=== PATIENT | male | born 1945 | race Hispanic/Latino ===

== ENCOUNTER 2018-09-14 18:06 | Emergency (ER) | payer MEDICARE ==
[2018-09-14 19:29] LABS: BASO # 0.1 K/uL (0.0-0.2); BASO % 0.7 % (0.0-2.0); EOS % 0.4 % (0.0-4.0); HEMOGLOBIN 14.8 g/dL (12.0-18.0); LYMPH # 1.9 K/uL (1.0-4.3); LYMPH % 23.3 % (20.0-40.0); MEAN CELL VOLUME 89.4 fL (80.0-94.0); MEAN CORPUSCULAR HEMOGLOBIN 29.6 pg (27.0-31.0); MEAN CORPUSCULAR HGB CONC 33.1 g/dL (33.0-37.0); MEAN PLATELET VOLUME 8.6 fL (7.2-11.7); MONO # 0.7 K/uL (0.0-0.8); NEUT # 5.5 K/uL (1.8-7.0); NEUT % 67.6 % (50.0-75.0); RBC 5.02 Mil/uL (4.40-5.90); RED CELL DISTRIBUTION WIDTH 14.4 % (11.5-14.5); WHITE BLOOD COUNT 8.1 K/uL (4.8-10.8)
--- NOTE | 2018-09-14 19:29 | C.PDOC ---
History Of Present Illness 72 year old male presents to the ED c/o left great toe pain that has been worsening for the past 2-3 weeks. Patient is a non insulin diabetic. Patient denies fever, chills, nausea, vomit, diarrhea, rash, injury, fall, trauma. Time Seen by Provider: 09/14/18 19:10 Chief Complaint (Nursing): Lower Extremity Problem/Injury History Per: Patient History/Exam Limitations: no limitations Onset/Duration Of Symptoms: Days Current Symptoms Are (Timing): Still Present Recent travel outside of the [place]: No Additional History Per: Patient - Ankle/Foot Description Of Injury: Other Past Medical History Reviewed: Historical Data, Nursing Documentation, Vital Signs Vital Signs: Last Vital Signs Temp 97.6 F 09/14/18 18:11 Pulse 110 H 09/14/18 18:11 Resp 20 09/14/18 18:11 BP 161/86 H 09/14/18 18:11 Pulse Ox 97 09/14/18 18:11 - Medical History PMH: Diabetes Surgical History: No Surg Hx Family History: States: Unknown Family Hx - Social History Hx Alcohol Use: No Hx Substance Use: No - Immunization History Hx Tetanus Toxoid Vaccination: No Hx Influenza Vaccination: Yes Hx Pneumococcal Vaccination: Yes Review Of Systems Constitutional: Negative for: Fever, Chills Cardiovascular: Negative for: Chest Pain Respiratory: Negative for: Cough, Shortness of Breath Gastrointestinal: Negative for: Nausea, Vomiting, Abdominal Pain Musculoskeletal: Positive for: Foot Pain Skin: Negative for: Rash Neurological: Negative for: Weakness, Numbness, Headache, Dizziness Physical Exam - Physical Exam Appears: Non-toxic, No Acute Distress Skin: Warm, Dry Head: Normacephalic Eye(s): bilateral: Normal Inspection Neck: Supple Chest: Symmetrical Cardiovascular: Rhythm Regular Respiratory: No Rales, No Rhonchi, No Wheezing Gastrointestinal/Abdominal: Soft, No Tenderness, No Guarding, No Rebound Back: No CVA Tenderness Extremity: Capillary Refill (left great toe slight decreased) Extremity: Left: Other (left great toe medial aspect 2x3 cm area of necrosis), Right: Normal Color And Temperature, Bilateral: Atraumatic, Normal ROM Pulses: Left Dorsalis Pedis: Normal, Right Dorsalis Pedis: Normal Neurological/Psych: Oriented x3, Normal Speech, Normal Cognition Gait: Steady ED Course And Treatment - Laboratory Results Result Diagrams: 09/14/18 19:00 09/14/18 19:00 O2 Sat by Pulse Oximetry: 97 (ON RA) Pulse Ox Interpretation: Normal - CT Scan/US CT lower extrem Other Rad Studies (CT/US): Read By Radiologist, Radiology Report Reviewed CT/US Interpretation: EXAM: CT Foot, left, without IV contrast. CLINICAL HISTORY: Attn. left great toe/gangrene. TECHNIQUE: Axial computed tomography images of the left foot without intravenous contrast. 0.00 mGy-cm. CONTRAST: Without. COMPARISON: None provided. FINDINGS: BONES: No acute fracture is evident. No aggressive appearing osseous lesion. No periosteal reaction evident. Calcaneal spurs are seen arising from along the insertion site of the Achilles tendon and plantar aspects which measure proximally 9.0 and 7.8 mm in length respectively. JOINTS: The joint spaces appear within normal limits. No dislocation. SOFT TISSUES: No radiopaque foreign body is seen. No soft tissue fluid collection. No subcutaneous gas is identified. VASCULAR: Extensive atherosclerotic vascular plaquing is present. IMPRESSION: 1. No acute abnormality evident on examination of the left foot. 2. Extensive atherosclerotic vascular plaquing. 3. Calcaneal spurs as described above. . Electronically signed on Sep 14, 2018 8:54:06 PM EST by: Donnell Alexis M.D., RUDOLPH Certified By ABR & CBC[facility]. Fellowship Trained MRI and CT Specialist. pt was seen by podiatry. they do not want ot be hospitalized and will see dr hopkins in am on 09/15/18.Understand the risks of not staying Progress Note: Plan: - Labs. - VBG. - CT lower extrem. - UA. - Blood cul ture. 8:55 pm spoke with the podiatry resident. will come and see the pt in the ed Disposition Counseled Patient/Family Regarding: Studies Performed, Diagnosis, Need For Followup - Disposition Referrals: Xiang Vaughn DPM [Doctor Podiatric Medicine] - Disposition: HOME/ ROUTINE Disposition Time: 22:37 Condition: FAIR Additional Instructions: please see your community service officer coordinator tomorrow or return to the ed Prescriptions: Cephalexin [Keflex] 500 mg PO TID #21 capsule Sulfamethoxazole/Trimethoprim [Bactrim DS 800 mg-160 mg] 1 tab PO BID #14 tab Instructions: Cellulitis (Skin Infection), Adult (DC), Diabetic Foot Ulcer (DC), Foot Care for Diabetics Forms: [facility] (Ecuadorean) - Clinical Impression Clinical Impression: Toe ulcer due to DM, Cellulitis - Scribe Statement The provider has reviewed the documentation as recorded by the Scribe Hay Mcwilliams All medical record entries made by the Scribe were at my direction and personally dictated by me. I have reviewed the chart and agree that the record accurately reflects my personal performance of the history, physical exam, medical decision making, and the department course for this patient. I have also personally directed, reviewed, and agree with the discharge instructions and disposition.
[2018-09-14 19:47] LABS: ALB/GLOB RATIO 1.3 (1.0-2.1); ALBUMIN 4.8 g/dL (3.5-5.0); ALT/SGPT 17 U/L (21-72); AST/SGOT 29 U/L (17-59); BLOOD UREA NITROGEN 22 mg/dL (9-20); CALCIUM 9.5 mg/dl (8.6-10.4); GFR NON-AFRICAN AMERICAN > 60
[2018-09-14 19:56] LABS: PROTHROMBIN TIME 10.6 SECONDS (9.7-12.2)
[2018-09-14 20:11] LABS: URINE BACTERIA RARE (<OCC); URINE BILIRUBIN NEGATIVE (NEGATIVE); URINE BLOOD NEGATIVE (NEGATIVE); URINE CLARITY Clear (Clear); URINE COLOR Yellow (YELLOW); URINE GLUCOSE (UA) 3+ mg/dL (Normal); URINE LEUKOCYTE ESTERASE NEG Leu/uL (Negative); URINE PROTEIN 1+ mg/dL (NEGATIVE); URINE UROBILINOGEN NORMAL mg/dL (0.2-1.0)
[2018-09-14 20:45] LABS: VENOUS BLOOD GAS BASE EXCESS -4.5 mmol/L (0.0-2.0); VENOUS BLOOD GAS PCO2 40 mmHg (40-60); VENOUS BLOOD GAS PO2 51 mm/Hg (30-55); VENOUS BLOOD PH 7.33 (7.32-7.43)
[2018-09-14] MEDS ORDERED: (Novolin R) Insulin Human Regular 100 units/ml vial IVP ONE (20:48)
[2018-09-14] MEDS ORDERED: (Novolin R) Insulin Human Regular 100 units/ml vial ONE (20:57)
[2018-09-14 21:56] VITALS: RESP 16
[2018-09-14 22:58] VITALS: BP 145/81; PULSE 91; TEMP 97.8; O2SAT 98
--- NOTE | 2018-09-15 12:34 | CT ---
CT left foot HISTORY: Left toe ulcer. Evaluate gangrene. Comparison: None available. Technique: Multiple contiguous axial images were performed through the left foot without the use of intravenous contrast. Subsequently, sagittal and coronal reformatted images were obtained. This CT exam was performed using one or more of the following dose reduction techniques: Automated exposure control, adjustment of the mA and/or kV according to patient size, and/or use of iterative reconstruction technique. Findings: Soft tissue swelling noted at the level of the 1st digit. This may represent a cellulitis. Punctate foci of air noted at the level of the nail bed on the sagittal views series 602 image 47, nonspecific. Clinical correlation. Mild productive change along the medial cortex of the base of the 1st proximal phalanx, nonspecific. Minimal sclerosis seen at the volar base of the 1st proximal phalanx, nonspecific. No evidence of gross bony destructive change at the 1st digit to suggest an acute osteomyelitis. Further evaluation with MRI may be helpful if clinically indicated if there is concern for acute osteomyelitis. Moderate hallux valgus deformity. Degenerative changes at the 1st metatarsus sesamoid joint space. Prominent vascular calcifications. Plantar and dorsal calcaneal spurring. Narrowing of the tibiotalar joint space. Subchondral cyst formation noted at the base of the 4th metatarsal bone. Impression: Soft tissue swelling noted at the level of the 1st digit. This may represent a cellulitis. Punctate foci of air noted at the level of the nail bed on the sagittal views series 602 image 47, nonspecific. Clinical correlation. Mild productive change along the medial cortex of the base of the 1st proximal phalanx, nonspecific. Minimal sclerosis seen at the volar base of the 1st proximal phalanx, nonspecific. No evidence of gross bony destructive change at the 1st digit to suggest an acute osteomyelitis. Further evaluation with MRI may be helpful if clinically indicated if there is concern for acute osteomyelitis. A preliminary report was generated at 8:54 p.m. on 09/14/[address] Donnell Alexis from [employer]. Please note this case was placed in the PA review folder.
== END 2018-09-14 22:56 | disposition home or self-care (01) ==
LOC: C.ER 18:06
DX: E11.621 Type 2 diabetes mellitus with foot ulcer (principal); L97.529 Non-pressure chronic ulcer of other part of left foot with unspecified severity; Z79.84 Long term (current) use of oral hypoglycemic drugs; L03.032 Cellulitis of left toe

== ENCOUNTER 2018-09-15 13:35 | Inpatient (IN) | payer MEDICARE ==
--- NOTE | 2018-09-15 14:02 | C.PDOC ---
History Of Present Illness 72 yr old male w/ hx of DM2, HTN, HLD p/w L big toe ulceration / gangrene. Per daughter and RN bedside translating pt has had x2 weeks or L big toe foot ulcer with mild pain after initially tripping on a sidewalk. Pt came in last night and was reccomended to stay, but refused and went home with abx, bactrim and a cephalsporin abx which he took this AM. Pt was seen by Dr. Vaughn this morning and sent in here for evaluation, iv abx and admission. Pt denies any pain at this time. He denies any fever, chills or night sweats. He denies any ankle pain, knee or foot pain. No other complaints. Time Seen by Provider: 09/15/18 13:51 Past Medical History - Medical History PMH: Diabetes Family History: States: Unknown Family Hx - Social History Hx Alcohol Use: No Hx Substance Use: No - Immunization History Hx Tetanus Toxoid Vaccination: No Hx Influenza Vaccination: Yes Hx Pneumococcal Vaccination: Yes Review Of Systems Constitutional: Negative for: Fever Eyes: Negative for: Pain, Vision Change ENT: Negative for: Ear Pain, Ear Discharge, Nose Pain, Nose Congestion, Mouth Pain, Mouth Swelling Cardiovascular: Negative for: Chest Pain, Palpitations, Edema Respiratory: Negative for: Cough, Shortness of Breath, SOB with Excertion, Pleuritic Pain Gastrointestinal: Negative for: Nausea, Vomiting, Constipation, Melena Genitourinary: Negative for: Dysuria, Frequency, Hematuria Musculoskeletal: Negative for: Neck Pain, Shoulder Pain, Back Pain Skin: Positive for: Lesions (L big toe ulcer) Neurological: Negative for: Weakness, Numbness Psych: Negative for: Anxiety Physical Exam - Physical Exam Appears: Well, Non-toxic, No Acute Distress Skin: Other (L 1st toe ulcer dorsal surface, mild erythema, gangrenous appearing. No crepitus noted. No streaking. ) Eye(s): bilateral: Normal Inspection, PERRL, EOMI Nose: Normal Oral Mucosa: Moist Tongue: Normal Appearing Throat: Normal, No Erythema, No Exudate Neck: Normal, Supple, Other (no meningeal signs) Cardiovascular: Rhythm Regular Respiratory: Normal Breath Sounds Gastrointestinal/Abdominal: Normal Exam Back: Normal Inspection, No CVA Tenderness, No Vertebral Tenderness Extremity: Normal ROM Pulses: Left Dorsalis Pedis: Normal, Right Dorsalis Pedis: Normal Neurological/Psych: Oriented x3, Normal Speech, Normal Cognition Gait: Steady Extremity: Right: No Drift, Left: No Drift, Upper: No Drift, Lower: No Drift ED Course And Treatment - Laboratory Results Result Diagrams: 09/15/18 14:19 Medical Decision Making Medical Decision Makin yr old male w/ hx of HTN, DM2, HLD p/w L big toe foot ulcer. Likely gangrenous. Seen by Podiatry outpt and sent in for admission. N/V intact in b/l LE. Full ROM. Had imaging yesterday (CT). 1405 appreciate consult w/ Dr. Mendieta (admits for [facility]) to admit to his service. pt in [facility], agreeable to plan Podiatry resident paged. 0518 CBC unremarkable Podiatry resident aware- to see pt Pt in NAD- afebrile no elevated WBC. Admitted to Dr. Mendieta service on med/surg Disposition - Disposition Disposition Time: 14:35 Condition: GOOD Forms: [facility] (Sao Tomean) - Clinical Impression Clinical Impression: Diabetic foot ulcer
[2018-09-15] MEDS ORDERED: Piperacillin/Tazobact 3.375 gm 100 ML IVPB STA (14:06)
[2018-09-15 14:25] LABS: BASO % 0.3 % (0.0-2.0); EOS % 0.6 % (0.0-4.0); HEMOGLOBIN 13.9 g/dL (12.0-18.0); LYMPH # 1.2 K/uL (1.0-4.3); LYMPH % 15.8 % (20.0-40.0); MEAN CELL VOLUME 89.4 fL (80.0-94.0); MEAN CORPUSCULAR HEMOGLOBIN 29.7 pg (27.0-31.0); MEAN CORPUSCULAR HGB CONC 33.2 g/dL (33.0-37.0); MEAN PLATELET VOLUME 8.9 fL (7.2-11.7); MONO # 0.6 K/uL (0.0-0.8); MONO % 7.7 % (0.0-10.0); NEUT # 5.6 K/uL (1.8-7.0); NEUT % 75.6 % (50.0-75.0); RBC 4.7 Mil/uL (4.40-5.90); RED CELL DISTRIBUTION WIDTH 14.1 % (11.5-14.5); WHITE BLOOD COUNT 7.4 K/uL (4.8-10.8)
[2018-09-15 14:39] LABS: VENOUS BLOOD GAS PCO2 42 mmHg (40-60); VENOUS BLOOD GAS PO2 34 mm/Hg (30-55); VENOUS BLOOD PH 7.34 (7.32-7.43)
[2018-09-15] MEDS ORDERED: Vancomycin 1 GM 1 GM/250 ML BAG IVPB ONE (14:39)
[2018-09-15] MEDS ORDERED: Piperacillin/Tazobact 3.375 gm 100 ML IVPB ONE (14:39)
[2018-09-15] MEDS ORDERED: Sodium Chloride 0.9% 1,000 ML ONE (14:39)
[2018-09-15 14:40] LABS: PROTHROMBIN TIME 10.9 SECONDS (9.7-12.2)
[2018-09-15] MEDS: Sodium Chloride 0.9% 1,000 ML IV SCH (14:46)
[2018-09-15 15:07] LABS: ALB/GLOB RATIO 1.4 (1.0-2.1); ALBUMIN 4.2 g/dL (3.5-5.0); ALT/SGPT 16 U/L (21-72); AST/SGOT 41 U/L (17-59); BLOOD UREA NITROGEN 19 mg/dL (9-20); CALCIUM 8.9 mg/dl (8.6-10.4); GFR NON-AFRICAN AMERICAN > 60
--- NOTE | 2018-09-15 16:32 | CP.PCM.HP ---
History of Present Illness - History of Present Illness History of Present Illness: 72 yr old male w/ hx of DM2, HTN, HLD p/w L big toe ulceration / gangrene. Per daughter and RN bedside translating pt has had x2 weeks or L big toe foot ulcer with mild pain after initially tripping on a sidewalk. Pt came in last night and was reccomended to stay, but refused and went home with abx, bactrim and a cephalsporin abx which he took this AM. Pt was seen by Dr. Vaughn this morning and sent in here for evaluation, iv abx and admission. Pt denies any pain at this time. He denies any fever, chills or night sweats. He denies any ankle pain, knee or foot pain. Present on Admission - Present on Admission Any Indicators Present on Admission: Yes History of DVT/PE: No History of Uncontrolled Diabetes: Yes Urinary Catheter: No Decubitus Ulcer Present: No Review of Systems - Review of Systems All systems: reviewed and no additional remarkable complaints except (As mentioned in HPI) Past Patient History - Past Social History Smoking Status: Never Smoked - CARDIAC Hx Hypercholesterolemia: Yes Hx Hypertension: Yes - PULMONARY Hx Respiratory Disorders: No - NEUROLOGICAL Hx Neurological Disorder: No - HEENT Hx HEENT Problems: No - RENAL Hx Chronic Kidney Disease: No - ENDOCRINE/METABOLIC Hx Diabetes Mellitus Type 2: Yes - HEMATOLOGICAL/ONCOLOGICAL Hx Blood Disorders: No - INTEGUMENTARY Hx Dermatological Problems: No - MUSCULOSKELETAL/RHEUMATOLOGICAL Hx Musculoskeletal Disorders: No Hx Gout: Yes - GASTROINTESTINAL Hx Gastrointestinal Disorders: No - GENITOURINARY/GYNECOLOGICAL Hx Genitourinary Disorders: No - PSYCHIATRIC Hx Substance Use: No - SURGICAL HISTORY Hx Surgeries: No Meds Allergies/Adverse Reactions: Allergies Allergy/AdvReac Type Severity Reaction Status Date / Time No Known Allergies Allergy Verified 09/15/18 14:05 Physical Exam - Head Exam Head Exam: NORMAL INSPECTION - Eye Exam Eye Exam: Normal appearance - ENT Exam ENT Exam: Mucous Membranes Moist - Respiratory Exam Respiratory Exam: Clear to Auscultation Bilateral - Cardiovascular Exam Cardiovascular Exam: REGULAR RHYTHM, +S1, +S2 - GI/Abdominal Exam GI & Abdominal Exam: Normal Bowel Sounds, Soft - Neurological Exam Neurological exam: Alert, Oriented x3 - Psychiatric Exam Psychiatric exam: Normal Affect, Normal Mood - Skin Skin Exam: Normal Color, Warm Results - Vital Signs Recent Vital Signs: Last Vital Signs Temp 98.1 F 09/15/18 13:58 Pulse 101 H 09/15/18 13:58 Resp 14 09/15/18 13:58 BP 151/86 H 09/15/18 13:58 Pulse Ox 96 09/15/18 13:58 - Labs Result Diagrams: 09/15/18 14:19 09/15/18 14:19 Labs: Laboratory Results - last 24 hr 09/15/18 09/15/18 09/15/18 14:19 14:19 14:19 WBC 7.4 RBC 4.70 Hgb 13.9 Hct 42.1 MCV 89.4 MCH 29.7 MCHC 33.2 RDW 14.1 Plt Count 275 MPV 8.9 Neut % (Auto) 75.6 H Lymph % (Auto) 15.8 L [place] % (Auto) 7.7 Eos % (Auto) 0.6 Baso % (Auto) 0.3 Neut # (Auto) 5.6 Lymph # (Auto) 1.2 [place] # (Auto) 0.6 Eos # (Auto) 0.0 Baso # (Auto) 0.0 PT 10.9 INR 1.0 APTT 26 D pO2 VBG pH VBG pCO2 VBG HCO3 VBG Total CO2 VBG O2 Sat (Calc) VBG Base Excess VBG Potassium Glucose Lactate Crit Value Called To Crit Value Called By Crit Value Read Back Blood Gas Notified Time Sodium 132 Potassium 4.1 Chloride 97 L Carbon Dioxide 24 Anion Gap 15 BUN 19 Creatinine 0.9 Est GFR ( Amer) > 60 Est GFR (Non-Af Amer) > 60 Random Glucose 459 H* Calcium 8.9 Total Bilirubin 0.4 AST 41 ALT 16 L Alkaline Phosphatase 124 Total Protein 7.4 Albumin 4.2 Globulin 3.1 Albumin/Globulin Ratio 1.4 Venous Blood Potassium Blood Type Antibody Screen 09/15/18 09/15/18 14:23 14:25 WBC RBC Hgb Hct MCV MCH MCHC RDW Plt Count MPV Neut % (Auto) Lymph % (Auto) [place] % (Auto) Eos % (Auto) Baso % (Auto) Neut # (Auto) Lymph # (Auto) [place] # (Auto) Eos # (Auto) Baso # (Auto) PT INR APTT pO2 34 VBG pH 7.34 VBG pCO2 42 VBG HCO3 21.6 VBG Total CO2 24.0 VBG O2 Sat (Calc) 67.2 H VBG Base Excess -3.0 L VBG Potassium 4.1 Glucose 451 H* Lactate 1.5 Crit Value Called To nanci Narvaez rn Crit Value Called By Amelia mckee, rt Crit Value Read Back Y Blood Gas Notified Time 1439 Sodium 133.0 Potassium Chloride 98.0 Carbon Dioxide Anion Gap BUN Creatinine Est GFR ( Amer) Est GFR (Non-Af Amer) Random Glucose Calcium Total Bilirubin AST ALT Alkaline Phosphatase Total Protein Albumin Globulin Albumin/Globulin Ratio Venous Blood Potassium 4.1 Blood Type O POSITIVE Antibody Screen Negative Assessment & Plan (1) Diabetic foot ulcer Status: Acute (2) Cellulitis Status: Acute (3) HTN (hypertension) Status: Acute (4) Diabetes Status: Acute - Assessment and Plan (Free Text) Plan: Continue antibiotics Wound culture Podiatry consult Infectious disease consult Accu-Chek Insulin sliding scale Blood pressure control DVT/GI prophylaxis
[2018-09-15] MEDS ORDERED: Piperacill/Tazo 3.375gm in Dex 3.375 GM/50 ML BAG IVPB SCH (18:45)
--- NOTE | 2018-09-15 20:03 | CP.PCM.CON ---
History of Present Illness - History of Present Illness History of Present Illness: Podiatry Consult note for Dr. Vaughn 72M PMH DM, HTN, HLD seen in ED for left hallux ischemic changes after being seen today by Dr. Vaughn. Patient was seen in the ED last night but left AMA and returns today. He states that he began noticing his big toe changing color several weeks ago prompting him to come into the ED last night. He denies any pain to the area. Denies any drainage, malodor or other clinical signs of infection. He is AAO x 3 and NAD at time of visit. Denies any further pedal complaints at this time. Denies any recent N/V/F/C/CP/SOB/D Review of Systems - Review of Systems All systems: reviewed and no additional remarkable complaints except Review of Systems: as per HPI Past Patient History - Past Medical History & Family History Past Medical History?: Yes - Past Social History Smoking Status: Never Smoked - CARDIAC Hx Hypercholesterolemia: Yes Hx Hypertension: Yes - PULMONARY Hx Respiratory Disorders: No - NEUROLOGICAL Hx Neurological Disorder: No - HEENT Hx HEENT Problems: No - RENAL Hx Chronic Kidney Disease: No - ENDOCRINE/METABOLIC Hx Diabetes Mellitus Type 2: Yes - HEMATOLOGICAL/ONCOLOGICAL Hx Blood Disorders: No - INTEGUMENTARY Hx Dermatological Problems: No - MUSCULOSKELETAL/RHEUMATOLOGICAL Hx Musculoskeletal Disorders: No Hx Gout: Yes - GASTROINTESTINAL Hx Gastrointestinal Disorders: No - GENITOURINARY/GYNECOLOGICAL Hx Genitourinary Disorders: No - PSYCHIATRIC Hx Substance Use: No - SURGICAL HISTORY Hx Surgeries: No Meds Allergies/Adverse Reactions: Allergies Allergy/AdvReac Type Severity Reaction Status Date / Time No Known Allergies Allergy Verified 09/15/18 14:05 - Medications Medications: Current Medications Allopurinol (Zyloprim) 300 mg PO DAILY MARYAM Aspirin (Ecotrin) 81 mg PO DAILY MARYAM Colchicine (Colocrys) 0.6 mg PO BID MARYAM Enoxaparin Sodium (Lovenox) 40 mg SC DAILY MARYAM Hydrochlorothiazide (Microzide) 12.5 mg PO DAILY MARYAM Sodium Chloride (Sodium Chloride 0.9%) 1,000 mls @ 100 mls/hr IV .Q10H MARYAM Last Admin: 09/15/18 14:46 Dose: 100 mls/hr Piperacillin Sod/Tazobactam Sod (Zosyn 3.375 Gm Iv Premix) 3.375 gm in 50 mls @ 100 mls/hr IVPB Q6H MARYAM; Protocol Insulin Aspart (Novolog) 0 unit SC ACHS MARYAM; Protocol Losartan Potassium (Cozaar) 50 mg PO DAILY MARYAM Metformin HCl (Glucophage) 1,000 mg PO BID MARYAM Rosuvastatin Calcium (Crestor) 2.5 mg PO HS MARYAM Sitagliptin Phosphate (Januvia) 100 mg PO DAILY MARYAM Physical Exam - Constitutional Appears: Well, Non-toxic, No Acute Distress - Extremities Exam Additional comments: LE focused exam: Vasc: DP/PT pulses faintly palpable 1/4 b/l. Skin temperature warm to warm from proximal to distal WNL. CFT increased to all digits. No edema noted b/l Neuro: Epicritic and protective sensation grossly diminished b/l Derm: 1 cm x 2.5 cm ischemic eschar noted to medial aspect of left hallux. No periwound erythema, malodor, drainage, fluctuance or other clinical signs of infection. Otherwise no open lesions, wounds, maceration, xerosis, abnormal pigmentation or abnormal growths noted MSK: No POP to ischemic site. ROM to all digits slightly decreased. MMT 4/5 in all major muscle groups. No gross deformities noted at this time - Neurological Exam Neurological exam: Alert, Oriented x3 - Psychiatric Exam Psychiatric exam: Normal Affect, Normal Mood Results - Vital Signs Recent Vital Signs: Last Vital Signs Temp 98.1 F 09/15/18 13:58 Pulse 101 H 09/15/18 13:58 Resp 14 09/15/18 13:58 BP 151/86 H 09/15/18 13:58 Pulse Ox 96 09/15/18 13:58 - Labs Result Diagrams: 09/15/18 14:19 09/15/18 14:19 Labs: Laboratory Results - last 24 hr 09/15/18 09/15/18 09/15/18 14:19 14:19 14:19 WBC 7.4 RBC 4.70 Hgb 13.9 Hct 42.1 MCV 89.4 MCH 29.7 MCHC 33.2 RDW 14.1 Plt Count 275 MPV 8.9 Neut % (Auto) 75.6 H Lymph % (Auto) 15.8 L [place] % (Auto) 7.7 Eos % (Auto) 0.6 Baso % (Auto) 0.3 Neut # (Auto) 5.6 Lymph # (Auto) 1.2 [place] # (Auto) 0.6 Eos # (Auto) 0.0 Baso # (Auto) 0.0 PT 10.9 INR 1.0 APTT 26 D pO2 VBG pH VBG pCO2 VBG HCO3 VBG Total CO2 VBG O2 Sat (Calc) VBG Base Excess VBG Potassium Glucose Lactate Crit Value Called To Crit Value Called By Crit Value Read Back Blood Gas Notified Time Sodium 132 Potassium 4.1 Chloride 97 L Carbon Dioxide 24 Anion Gap 15 BUN 19 Creatinine 0.9 Est GFR ( Amer) > 60 Est GFR (Non-Af Amer) > 60 POC Glucose (mg/dL) Random Glucose 459 H* Calcium 8.9 Total Bilirubin 0.4 AST 41 ALT 16 L Alkaline Phosphatase 124 Total Protein 7.4 Albumin 4.2 Globulin 3.1 Albumin/Globulin Ratio 1.4 Venous Blood Potassium Blood Type Antibody Screen 09/15/18 09/15/18 09/15/18 14:23 14:25 17:21 WBC RBC Hgb Hct MCV MCH MCHC RDW Plt Count MPV Neut % (Auto) Lymph % (Auto) [place] % (Auto) Eos % (Auto) Baso % (Auto) Neut # (Auto) Lymph # (Auto) [place] # (Auto) Eos # (Auto) Baso # (Auto) PT INR APTT pO2 34 VBG pH 7.34 VBG pCO2 42 VBG HCO3 21.6 VBG Total CO2 24.0 VBG O2 Sat (Calc) 67.2 H VBG Base Excess -3.0 L VBG Potassium 4.1 Glucose 451 H* Lactate 1.5 Crit Value Called To nanci Narvaez,drake Crit Value Called By Amelia mckee, Crit Value Read Back Y Blood Gas Notified Time 1439 Sodium 133.0 Potassium Chloride 98.0 Carbon Dioxide Anion Gap BUN Creatinine Est GFR ( Amer) Est GFR (Non-Af Amer) POC Glucose (mg/dL) 292 H Random Glucose Calcium Total Bilirubin AST ALT Alkaline Phosphatase Total Protein Albumin Globulin Albumin/Globulin Ratio Venous Blood Potassium 4.1 Blood Type O POSITIVE Antibody Screen Negative Assessment & Plan - Assessment and Plan (Free Text) Assessment: 72M seen in ED for left hallux ischemic changes after being seen today by Dr. Vaughn Plan: Patient seen and evaluated Plan discussed with Dr. Vaughn Afebrile and absent leukocytosis during ED visit yesterday Infectious disease consulted IV abx per ID Wound cx pending Vascular surgery consulted Lower extremity CT shows no evidence of acute osteomyelitis Wound dressed with betadine, DSD Podiatry will continue to follow while patient in house - Date & Time Date: 09/15/18 Time: 17:00
[2018-09-15] MEDS: Piperacill/Tazo 3.375gm in Dex 3.375 GM/50 ML BAG IVPB SCH (20:40)
[2018-09-15] MEDS: Rosuvastatin Calcium 2.5 mg Tab PO SCH (21:32)
[2018-09-15] MEDS: (Novolog) Insulin Aspart, Recombinant 100 u/ml 10 ml vial SC SCH (22:18)
[2018-09-16] MEDS: Sodium Chloride 0.9% 1,000 ML IV SCH ×5 (00:15→21:10)
--- NOTE | 2018-09-16 01:10 | CP.PCM.CON ---
History of Present Illness - History of Present Illness History of Present Illness: Vascular Surgery Re: L hallux ulcer, dry gangrene HPI: 72M with left hallux ischemic changes per Podiatry team. Pt was seen in the ER 2 days ago but left AMA and returned yesterday. He began noticing his big toe changing color 2 weeks ago. He has never had anything like this before. Denies foot/toe pain, drainage, malodor. Denies Fever, Chills, Nausea, emesis, chest pain, SOB, Diarrhea, constipation. No other complaints. PMH: DM, HTN, HLD PSH: Cataract sx SH: No tobacco, EtOH, or drug use FH: Non-contributory All: NKDA Meds: See MAR Review of Systems - Review of Systems All systems: reviewed and no additional remarkable complaints except (as per HPI) Past Patient History - Past Medical History & Family History Past Medical History?: Yes - Past Social History Smoking Status: Never Smoked - CARDIAC Hx Hypercholesterolemia: Yes Hx Hypertension: Yes - PULMONARY Hx Respiratory Disorders: No - NEUROLOGICAL Hx Neurological Disorder: No - HEENT Hx HEENT Problems: No - RENAL Hx Chronic Kidney Disease: No - ENDOCRINE/METABOLIC Hx Diabetes Mellitus Type 2: Yes - HEMATOLOGICAL/ONCOLOGICAL Hx Blood Disorders: No - INTEGUMENTARY Hx Dermatological Problems: No - MUSCULOSKELETAL/RHEUMATOLOGICAL Hx Musculoskeletal Disorders: No Hx Gout: Yes - GASTROINTESTINAL Hx Gastrointestinal Disorders: No - GENITOURINARY/GYNECOLOGICAL Hx Genitourinary Disorders: No - PSYCHIATRIC Hx Substance Use: No - SURGICAL HISTORY Hx Surgeries: No Meds Allergies/Adverse Reactions: Allergies Allergy/AdvReac Type Severity Reaction Status Date / Time No Known Allergies Allergy Verified 09/15/18 14:05 - Medications Medications: Current Medications Allopurinol (Zyloprim) 300 mg PO DAILY [facility] Aspirin (Ecotrin) 81 mg PO DAILY [facility] Colchicine (Colocrys) 0.6 mg PO BID [facility] Enoxaparin Sodium (Lovenox) 40 mg SC DAILY [facility] Hydrochlorothiazide (Microzide) 12.5 mg PO DAILY [facility] Sodium Chloride (Sodium Chloride 0.9%) 1,000 mls @ 100 mls/hr IV .Q10H [facility] Last Admin: 09/15/18 14:46 Dose: 100 mls/hr Piperacillin Sod/Tazobactam Sod (Zosyn 3.375 Gm Iv Premix) 3.375 gm in 50 mls @ 100 mls/hr IVPB Q6H [facility]; Protocol Last Admin: 09/15/18 20:40 Dose: 100 mls/hr Insulin Aspart (Novolog) 0 unit SC ACHS [facility]; Protocol Last Admin: 09/15/18 22:18 Dose: 2 units Losartan Potassium (Cozaar) 50 mg PO DAILY [facility] Metformin HCl (Glucophage) 1,000 mg PO BID [facility] Rosuvastatin Calcium (Crestor) 2.5 mg PO HS [facility] Last Admin: 09/15/18 21:32 Dose: 2.5 mg Sitagliptin Phosphate (Januvia) 100 mg PO DAILY [facility] Physical Exam - Constitutional Appears: Non-toxic, No Acute Distress - Head Exam Head Exam: ATRAUMATIC, NORMOCEPHALIC - Eye Exam Eye Exam: EOMI. absent: Scleral icterus - ENT Exam ENT Exam: Mucous Membranes Moist Additional comments: trachea midline - Neck Exam Neck exam: Positive for: Full Rom. Negative for: Tenderness - Respiratory Exam Respiratory Exam: NORMAL BREATHING PATTERN. absent: Respiratory Distress - Cardiovascular Exam Cardiovascular Exam: Tachycardia, +S1, +S2. absent: Bradycardia - GI/Abdominal Exam GI & Abdominal Exam: Soft. absent: Distended, Tenderness - Rectal Exam Rectal Exam: Deferred - Extremities Exam Extremities exam: Negative for: calf tenderness, pedal edema Additional comments: DP/PT Dopplerable B/L. 1 cm x 2.5 cm ischemic eschar noted to medial aspect of left hallux. No periwound erythema, malodor, drainage, fluctuance. R foot ulceration on dorsum (2/2 shoe per pt). - Back Exam Back exam: absent: CVA tenderness (L), CVA tenderness (R) - Neurological Exam Neurological exam: Alert, Oriented x3 - Skin Skin Exam: Dry, Warm Results - Vital Signs Recent Vital Signs: Last Vital Signs Temp 98.1 F 09/15/18 13:58 Pulse 101 H 09/15/18 13:58 Resp 14 09/15/18 13:58 BP 151/86 H 09/15/18 13:58 Pulse Ox 96 09/15/18 13:58 - Labs Result Diagrams: 09/15/18 14:19 09/15/18 14:19 Labs: Laboratory Results - last 24 hr 09/15/18 09/15/18 09/15/18 14:19 14:19 14:19 WBC 7.4 RBC 4.70 Hgb 13.9 Hct 42.1 MCV 89.4 MCH 29.7 MCHC 33.2 RDW 14.1 Plt Count 275 MPV 8.9 Neut % (Auto) 75.6 H Lymph % (Auto) 15.8 L Boyd % (Auto) 7.7 Eos % (Auto) 0.6 Baso % (Auto) 0.3 Neut # (Auto) 5.6 Lymph # (Auto) 1.2 Boyd # (Auto) 0.6 Eos # (Auto) 0.0 Baso # (Auto) 0.0 PT 10.9 INR 1.0 APTT 26 D pO2 VBG pH VBG pCO2 VBG HCO3 VBG Total CO2 VBG O2 Sat (Calc) VBG Base Excess VBG Potassium Glucose Lactate Crit Value Called To Crit Value Called By Crit Value Read Back Blood Gas Notified Time Sodium 132 Potassium 4.1 Chloride 97 L Carbon Dioxide 24 Anion Gap 15 BUN 19 Creatinine 0.9 Est GFR ( Amer) > 60 Est GFR (Non-Af Amer) > 60 POC Glucose (mg/dL) Random Glucose 459 H* Calcium 8.9 Total Bilirubin 0.4 AST 41 ALT 16 L Alkaline Phosphatase 124 Total Protein 7.4 Albumin 4.2 Globulin 3.1 Albumin/Globulin Ratio 1.4 Venous Blood Potassium Blood Type Antibody Screen 09/15/18 09/15/18 09/15/18 14:23 14:25 17:21 WBC RBC Hgb Hct MCV MCH MCHC RDW Plt Count MPV Neut % (Auto) Lymph % (Auto) Boyd % (Auto) Eos % (Auto) Baso % (Auto) Neut # (Auto) Lymph # (Auto) Boyd # (Auto) Eos # (Auto) Baso # (Auto) PT INR APTT pO2 34 VBG pH 7.34 VBG pCO2 42 VBG HCO3 21.6 VBG Total CO2 24.0 VBG O2 Sat (Calc) 67.2 H VBG Base Excess -3.0 L VBG Potassium 4.1 Glucose 451 H* Lactate 1.5 Crit Value Called To nanci Narvaez,rn Crit Value Called By Amelia mckee, rt Crit Value Read Back Y Blood Gas Notified Time 1439 Sodium 133.0 Potassium Chloride 98.0 Carbon Dioxide Anion Gap BUN Creatinine Est GFR ( Amer) Est GFR (Non-Af Amer) POC Glucose (mg/dL) 292 H Random Glucose Calcium Total Bilirubin AST ALT Alkaline Phosphatase Total Protein Albumin Globulin Albumin/Globulin Ratio Venous Blood Potassium 4.1 Blood Type O POSITIVE Antibody Screen Negative 09/15/18 21:51 WBC RBC Hgb Hct MCV MCH MCHC RDW Plt Count MPV Neut % (Auto) Lymph % (Auto) Boyd % (Auto) Eos % (Auto) Baso % (Auto) Neut # (Auto) Lymph # (Auto) Boyd # (Auto) Eos # (Auto) Baso # (Auto) PT INR APTT pO2 VBG pH VBG pCO2 VBG HCO3 VBG Total CO2 VBG O2 Sat (Calc) VBG Base Excess VBG Potassium Glucose Lactate Crit Value Called To Crit Value Called By Crit Value Read Back Blood Gas Notified Time Sodium Potassium Chloride Carbon Dioxide Anion Gap BUN Creatinine Est GFR ( Amer) Est GFR (Non-Af Amer) POC Glucose (mg/dL) 324 H Random Glucose Calcium Total Bilirubin AST ALT Alkaline Phosphatase Total Protein Albumin Globulin Albumin/Globulin Ratio Venous Blood Potassium Blood Type Antibody Screen Assessment & Plan - Assessment and Plan (Free Text) Assessment: 72M with L hallux wound needing vascular eval for surgical planning. Plan: MITRA/PVR ordered CTA aorto-ileofemoral with runoff ordered Follow up results to eval for Intervention if needed Will D/W Dr. Ford Stanton PGY4
[2018-09-16 01:42] VITALS: RESP 20
[2018-09-16] MEDS: Piperacill/Tazo 3.375gm in Dex 3.375 GM/50 ML BAG IVPB SCH ×4 (02:30→21:33)
[2018-09-16] MEDS: (Novolog) Insulin Aspart, Recombinant 100 u/ml 10 ml vial SC SCH ×4 (08:16→21:39)
[2018-09-16] MEDS: Enoxaparin 40 mg Syringe SC SCH (09:55)
[2018-09-16] MEDS ORDERED: Iodixanol 320 mg/ml 150 ml Bottle IV ONE (12:11)
--- NOTE | 2018-09-16 15:00 | CT ---
Date of service: 09/16/2018 PROCEDURE: CT Angiography Abdomen, Pelvis and Lower Extremity with Contrast HISTORY: Peripheral vascular disease COMPARISON: None available. TECHNIQUE: Technique: CT angiography of the abdomen, pelvis and bilateral lower extremities performed in the arterial phase of enhancement. Coronal and sagittal reformats, and well as rotating MIP images of the vessels generated at the workstation. Intravenous contrast dose: 150 milliliters Visipaque 320 Radiation dose: Total exam DLP = 2218.18 mGy-cm. This CT exam was performed using one or more of the following dose reduction techniques: Automated exposure control, adjustment of the mA and/or kV according to patient size, and/or use of iterative reconstruction technique. FINDINGS: CT ANGIOGRAPHY: ABDOMINAL AORTA:: Moderate plaque throughout the abdominal aorta without stenosis or aneurysm. MAJOR AORTIC BRANCHES: Celiac Ava: Unremarkable. Superior mesenteric artery: Unremarkable. Inferior mesenteric artery: Unremarkable. Renal arteries: Unremarkable. PELVIC ARTERIES: Right Common Iliac: Unremarkable. Right External Iliac: Unremarkable. Right Internal Iliac: Unremarkable. Left Common Iliac: Unremarkable. Left External Iliac: Unremarkable. Left Internal Iliac: Unremarkable. RIGHT LOWER EXTREMITY ARTERIES: Right Common Femoral: Unremarkable. Right Superficial Femoral: Diffuse moderate calcific plaque throughout the SFA with no significant stenosis. Right Profunda Femoris: Unremarkable. Right Popliteal:Unremarkable. Right Anterior Tibial: Mild to severe calcific plaque throughout the anterior tibial artery limits its evaluation. Multiple areas of moderate to severe stenosis throughout the anterior tibial artery. Right Tibioperoneal Trunk: Unremarkable. Right Posterior Tibial: Moderate to severe calcific plaque throughout the posterior tibial artery which limits evaluation. Distal posterior tibial artery may have areas of moderate stenosis. The artery however is believed to be patent Right Peroneal: Mild calcific plaque in the proximal segment but otherwise patent. Right dorsalis pedis : Unremarkable. LEFT LOWER EXTREMITY ARTERIES: Left Common Femoral: Unremarkable. Left Superficial Femoral: Moderate calcific plaque throughout the SFA with area of mild stenosis in distal SFA. Left Profunda Femoris: Unremarkable. Left Popliteal: Unremarkable. Left Anterior Tibial: Calcific plaque in the anterior tibial artery limits evaluation. The artery is believed to be patent. Left Tibioperoneal Trunk: Unremarkable. Left Posterior Tibial: Mild to severe calcific plaque throughout the posterior tibial artery limits evaluation. Areas of mild to severe stenosis in distal segment possible. Left Peroneal: Unremarkable. Left Dorsalis pedis: Unremarkable. NON-ANGIOGRAPHIC ASPECT OF THE EXAM: LOWER THORAX: Unremarkable. LIVER: Unremarkable. No gross lesion or ductal dilatation. GALLBLADDER AND BILE DUCTS: Unremarkable. PANCREAS: Unremarkable. No gross lesion or ductal dilatation. SPLEEN: Unremarkable. ADRENALS: Unremarkable. No mass. KIDNEYS AND URETERS: Unremarkable. No hydronephrosis. No solid mass. STOMACH AND BOWEL: Unremarkable. No obstruction. No gross mural thickening. APPENDIX: Normal appendix. PERITONEUM: Unremarkable. No free fluid. No free air. LYMPH NODES: Unremarkable. No enlarged lymph nodes. BLADDER: Unremarkable. REPRODUCTIVE: Unremarkable. BONES: No acute fracture. OTHER FINDINGS: None. IMPRESSION: CT ANGIOGRAM ABDOMEN/PELVIS: 1. Moderate calcific plaque throughout the abdominal aorta which is otherwise unremarkable. The pelvic arteries are unremarkable. RIGHT LOWER EXTREMITY CT ANGIOGRAM: 1. The common femoral artery profunda femoral artery normal. 2. There is moderate calcific plaque throughout the SFA with no significant stenosis. 3. The popliteal artery is unremarkable. 4. Runoff shows moderate to severe calcific plaque throughout the anterior tibial artery which limits evaluation. Multiple areas of severe stenosis possible throughout anterior tibial artery. Peroneal artery is patent. There is possible moderate stenosis of the distal posterior tibial artery.. LEFT LOWER EXTREMITY CT ANGIOGRAM: 1. The common femoral artery profunda femoral artery normal. 2. Is moderate calcific plaque throughout the SFA with no significant stenosis. 3. Popliteal artery is unremarkable. 4. Moderate plaque in the anterior tibial artery limits evaluation. The anterior tibial is believed to be patent. Moderate to severe calcific plaque throughout the posterior tibial artery limits evaluation. Possible severe stenosis of the distal posterior tibial artery. The peroneal artery is moderate plaque in the proximal segment but otherwise patent.
--- NOTE | 2018-09-16 15:37 | CP.PCM.CON ---
History of Present Illness - History of Present Illness History of Present Illness: 72M PMH DM, HTN, HLD seen in ED for left hallux ischemic changes after being seen today by Dr. Vaughn. Patient was seen in the ED last night but left AMA and returns today. He states that he began noticing his big toe changing color several weeks ago prompting him to come into the ED last night. He denies any pain to the area. Denies any drainage, malodor or other clinical signs of infection. He is AAO x 3 and NAD at time of visit. Denies any further pedal complaints at this time. Denies any recent N/V/F/C/CP/SOB/D Review of Systems - Review of Systems All systems: reviewed and no additional remarkable complaints except - Constitutional Constitutional: As Per HPI - EENT Eyes: absent: As Per HPI, Blind Spots, Blurred Vision, Change in Vision, Decreased Night Vision, Diplopia, Discharge, Dry Eye, Exophthalmos, Floaters, Irritation, Itchy Eyes, Loss of Peripheral Vision, Pain, Photophobia, Requires Corrective Lenses, Sees Flashes, Spots in Vision, Tunnel Vision, Other Visual D isturbances, Loss of Vision, Other Ears: absent: As Per HPI, Decreased Hearing, Ear Discharge, Ear Pain, Tinnitus, Abnormal Hearing, Disequilibrium, Dizziness, Other Nose/Mouth/Throat: absent: As Per HPI, Epistaxis, Nasal Congestion, Nasal Discharge, Nasal Obstruction, Nasal Trauma, Nose Pain, Post Nasal Drip, Sinus Pain, Sinus Pressure, Bleeding Gums, Change in Voice, Dental Pain, Dry Mouth, Dysphagia, Halitosis, Hoarsness, Lip Swelling, Mouth Lesions, Mouth Pain, Odynophagia, Sore Throat, Throat Swelling, Tongue Swelling, Facial Pain, Neck Pa in, Neck Mass, Other - Cardiovascular Cardiovascular: absent: As Per HPI, Acrocyanosis, Chest Pain, Chest Pain at Rest, Chest Pain with Activity, Claudication, Diaphoresis, Dyspnea, Dyspnea on Exertion, Edema, Irregular Heart Rhythm, Pain Radiating to Arm/Neck/Jaw, Leg Edema, Leg Ulcers, Lightheadedness, Orthopnea, Palpitations, Paroxysmal Nocturnal Dyspnea, Pedal Edema, Radiating Pain, Rapid Heart Rate, Slow Heart Rate, Syncope, Other - Respiratory Respiratory: absent: As Per HPI, Cough, Dyspnea, Hemoptysis, Dyspnea on Exertion, Wheezing, Snoring, Stridor, Pain on Inspiration, Chest Congestion, Excessive Mucous Production, Change in Mucous Color, Pain with Coughing, Other - Gastrointestinal Gastrointestinal: absent: As Per HPI, Abdominal Pain, Belching, Bloating, Change in Bowel Habits, Change in Stool Character, Coffee Ground Emesis, Constipation, Cramping, Diarrhea, Dyspepsia, Dysphagia, Early Satiety, Excessive Flatus, Fecal Incontinence, Heartburn, Hematemesis, Hematochezia, Loose Stools, Melena, Nausea, Odynophagia, Temesmus, Vomiting, Other - Genitourinary Genitourinary: absent: As Per HPI, Change in Urinary Stream, Difficulty Urinating, Dysuria, Flank Pain, Hematuria, Pyuria, Nocturia, Urinary Incontinence, Urinary Frequency, Urinary Hesitance, Urinary Urgency, Voiding Freq/Small Amts, Freq UTI, Hx Renal/Bladder Calculi, Hx /Renal Surgery, Bladder Distension, Other - Musculoskeletal Musculoskeletal: As Per HPI, Radiating Pain into Limb - Integumentary Integumentary: As Per HPI, Skin Pain, Wounds - Neurological Neurological: As Per HPI - Psychiatric Psychiatric: absent: As Per HPI, Abnormal Sleep Pattern, Anhedonia, Anxiety, Auditory Hallucinations, Behavioral Changes, Change in Appetite, Change in Libido, Confusion, Depression, Difficulty Concentrating, Hallucinations, Homicidal Ideation, Hopelessness, Irritability, Memory Loss, Mood Swings, Panic Attacks, Paranoia, Suicidal Ideation, Visual Hallucinations, Tactile Hallucinations, Other - Endocrine Endocrine: absent: As Per HPI, Change in Body Appearance, Change in Libido, Cold Intolorance, Deepening of Voice, Excessive Sweating, Fatigue, Flushing, Heat Intolorance, Increase in Ring/Shoe/Hat Size, Palpitations, Polydipsia, Polyphagia, Polyuria, Other - Hematologic/Lymphatic Hematologic: absent: As Per HPI, Easy Bleeding, Easy Bruising, Lymphadenopathy, Other Past Patient History - Past Medical History & Family History Past Medical History?: Yes - Past Social History Smoking Status: Never Smoked - CARDIAC Hx Hypercholesterolemia: Yes Hx Hypertension: Yes - PULMONARY Hx Respiratory Disorders: No - NEUROLOGICAL Hx Neurological Disorder: No - HEENT Hx HEENT Problems: No - RENAL Hx Chronic Kidney Disease: No - ENDOCRINE/METABOLIC Hx Diabetes Mellitus Type 2: Yes - HEMATOLOGICAL/ONCOLOGICAL Hx Blood Disorders: No - INTEGUMENTARY Hx Dermatological Problems: No - MUSCULOSKELETAL/RHEUMATOLOGICAL Hx Musculoskeletal Disorders: No Hx Gout: Yes - GASTROINTESTINAL Hx Gastrointestinal Disorders: No - GENITOURINARY/GYNECOLOGICAL Hx Genitourinary Disorders: No - PSYCHIATRIC Hx Substance Use: No - SURGICAL HISTORY Hx Surgeries: No Meds Allergies/Adverse Reactions: Allergies Allergy/AdvReac Type Severity Reaction Status Date / Time No Known Allergies Allergy Verified 09/15/18 14:05 - Medications Medications: Current Medications Allopurinol (Zyloprim) 300 mg PO DAILY [facility] Last Admin: 09/16/18 09:55 Dose: 300 mg Aspirin (Ecotrin) 81 mg PO DAILY [facility] Last Admin: 09/16/18 09:55 Dose: 81 mg Colchicine (Colocrys) 0.6 mg PO BID [facility] Last Admin: 09/16/18 09:55 Dose: 0.6 mg Enoxaparin Sodium (Lovenox) 40 mg SC DAILY [facility] Last Admin: 09/16/18 09:55 Dose: 40 mg Hydrochlorothiazide (Microzide) 12.5 mg PO DAILY [facility] Last Admin: 09/16/18 09:55 Dose: 12.5 mg Sodium Chloride (Sodium Chloride 0.9%) 1,000 mls @ 100 mls/hr IV .Q10H [facility] Last Admin: 09/16/18 14:05 Dose: Not Given Piperacillin Sod/Tazobactam Sod (Zosyn 3.375 Gm Iv Premix) 3.375 gm in 50 mls @ 100 mls/hr IVPB Q6H [facility]; Protocol Last Admin: 09/16/18 14:01 Dose: 100 mls/hr Insulin Aspart (Novolog) 0 unit SC ACHS [facility]; Protocol Last Admin: 09/16/18 12:26 Dose: 6 units Losartan Potassium (Cozaar) 50 mg PO DAILY [facility] Last Admin: 09/16/18 09:55 Dose: 50 mg Metformin HCl (Glucophage) 1,000 mg PO BID [facility] Last Admin: 09/16/18 09:54 Dose: 1,000 mg Rosuvastatin Calcium (Crestor) 2.5 mg PO HS [facility] Last Admin: 09/15/18 21:32 Dose: 2.5 mg Sitagliptin Phosphate (Januvia) 100 mg PO DAILY [facility] Last Admin: 09/16/18 09:55 Dose: 100 mg Physical Exam - Constitutional Appears: Non-toxic, Chronically Ill - Head Exam Head Exam: NORMOCEPHALIC - Eye Exam Eye Exam: absent: Scleral icterus - ENT Exam ENT Exam: Mucous Membranes Dry - Neck Exam Neck exam: Negative for: Lymphadenopathy - Respiratory Exam Respiratory Exam: Decreased Breath Sounds, Clear to Auscultation Bilateral - Cardiovascular Exam Cardiovascular Exam: REGULAR RHYTHM, +S1, +S2 - GI/Abdominal Exam GI & Abdominal Exam: Diminished Bowel Sounds, Soft. absent: Tenderness - Rectal Exam Rectal Exam: Deferred - Exam Exam: NORMAL INSPECTION - Extremities Exam Extremities exam: Positive for: pedal edema, pedal pulses present. Negative for: calf tenderness, tenderness - Back Exam Back exam: absent: CVA tenderness (L), CVA tenderness (R), paraspinal tenderness - Neurological Exam Neurological exam: Alert, CN II-XII Intact, Oriented x3, Reflexes Normal - Psychiatric Exam Psychiatric exam: Depressed - Skin Skin Exam: Dry Results - Vital Signs Recent Vital Signs: Last Vital Signs Temp 97.9 F 09/16/18 08:39 Pulse 90 09/16/18 08:39 Resp 20 09/16/18 08:39 BP 166/78 H 09/16/18 08:39 Pulse Ox 97 09/16/18 08:39 - Labs Result Diagrams: 09/17/18 06:53 09/17/18 06:53 Labs: Laboratory Results - last 24 hr 09/15/18 09/15/18 09/16/18 17:21 21:51 02:55 POC Glucose (mg/dL) 292 H 324 H 213 H 09/16/18 09/16/18 07:28 12:22 POC Glucose (mg/dL) 214 H 314 H Assessment & Plan (1) Diabetes Status: Acute (2) Diabetic foot ulcer Status: Acute (3) HTN (hypertension) Status: Acute (4) Cellulitis Status: Acute (5) Toe ulcer due to DM Status: Acute - Assessment and Plan (Free Text) Assessment: wound c/s - coag neg staph await carth report cont iv rx
--- NOTE | 2018-09-16 17:00 | CP.PCM.PN ---
Subjective - Date & Time of Evaluation Date of Evaluation: 09/16/18 Time of Evaluation: 16:59 - Subjective Subjective: Podiatry Progress Note for Dr. Vaughn 72M seen at bedside for ischemic changes to left hallux. Patient is accompanied by his daughter. Denies any acute overnight events or new pedal complaints. Denies any pain in his toe at this time. Denies any recent N/V/F/C/CP/SOB/D Objective - Vital Signs/Intake and Output Vital Signs (last 24 hours): Temp Pulse Resp BP Pulse Ox 97.9 F 90 20 166/78 H 97 09/16/18 08:39 09/16/18 08:39 09/16/18 08:39 09/16/18 08:39 09/16/18 08:39 Intake and Output: 09/16/18 09/16/18 06:59 18:59 Intake Total 1780 1280 Balance 1780 1280 - Medications Medications: Current Medications Allopurinol (Zyloprim) 300 mg PO DAILY [facility] Last Admin: 09/16/18 09:55 Dose: 300 mg Aspirin (Ecotrin) 81 mg PO DAILY [facility] Last Admin: 09/16/18 09:55 Dose: 81 mg Colchicine (Colocrys) 0.6 mg PO BID [facility] Last Admin: 09/16/18 09:55 Dose: 0.6 mg Enoxaparin Sodium (Lovenox) 40 mg SC DAILY [facility] Last Admin: 09/16/18 09:55 Dose: 40 mg Hydrochlorothiazide (Microzide) 12.5 mg PO DAILY [facility] Last Admin: 09/16/18 09:55 Dose: 12.5 mg Sodium Chloride (Sodium Chloride 0.9%) 1,000 mls @ 100 mls/hr IV .Q10H [facility] Last Admin: 09/16/18 14:05 Dose: Not Given Piperacillin Sod/Tazobactam Sod (Zosyn 3.375 Gm Iv Premix) 3.375 gm in 50 mls @ 100 mls/hr IVPB Q6H [facility]; Protocol Last Admin: 09/16/18 14:01 Dose: 100 mls/hr Vancomycin/Sodium Chloride (Vancomycin 1 Gm/Ns 200 Ml) 1 gm in 200 mls @ 133.333 mls/hr IVPB Q12H [facility]; Protocol Stop: 09/21/18 16:31 Insulin Aspart (Novolog) 0 unit SC ACHS [facility]; Protocol Last Admin: 09/16/18 12:26 Dose: 6 units Losartan Potassium (Cozaar) 50 mg PO DAILY [facility] Last Admin: 09/16/18 09:55 Dose: 50 mg Metformin HCl (Glucophage) 1,000 mg PO BID [facility] Last Admin: 09/16/18 09:54 Dose: 1,000 mg Rosuvastatin Calcium (Crestor) 2.5 mg PO HS [facility] Last Admin: 09/15/18 21:32 Dose: 2.5 mg Sitagliptin Phosphate (Januvia) 100 mg PO DAILY [facility] Last Admin: 09/16/18 09:55 Dose: 100 mg - Labs Labs: 09/15/18 14:19 09/15/18 14:19 PT 10.9 SECONDS (9.7-12.2) 09/15/18 14: INR 1.0 09/15/18 14:19 APTT 26 SECONDS (21-34) D 09/15/18 14:19 - Constitutional Appears: Well, Non-toxic, No Acute Distress - Extremities Exam Additional comments: LE focused exam: Vasc: DP/PT pulses faintly palpable 1/4 b/l. Skin temperature warm to warm from proximal to distal WNL. CFT increased to all digits. No edema noted b/l Neuro: Epicritic and protective sensation grossly diminished b/l Derm: 1 cm x 2.5 cm ischemic eschar noted to medial aspect of left hallux. No periwound erythema, malodor, drainage, fluctuance or other clinical signs of infection. Otherwise no open lesions, wounds, maceration, xerosis, abnormal pigmentation or abnormal growths noted MSK: No POP to ischemic site. ROM to all digits slightly decreased. MMT 4/5 in all major muscle groups. No gross deformities noted at this time - Neurological Exam Neurological Exam: Alert, Awake, Oriented x3 - Psychiatric Exam Psychiatric exam: Normal Affect, Normal Mood Assessment and Plan - Assessment and Plan (Free Text) Assessment: 72M seen at bedside for ischemic changes to left hallux Plan: Patient seen and evaluated Plan discussed with Dr. Vaughn Continue IV abx per ID F/u wound cx V/u vascular studies and vascular plan Wound dressed with betadine, DSD No plan for surgical intervention at this time Podiatry will continue to follow while patient in house
[2018-09-16] MEDS: Vancomycin 1 gm/NS 200 ml 1 GM/200 ML BAG IVPB SCH (17:20)
--- NOTE | 2018-09-16 18:38 | CP.PCM.PN ---
Subjective - Date & Time of Evaluation Date of Evaluation: 09/16/18 Time of Evaluation: 18:38 - Subjective Subjective: Patient is seen and examined No events overnight Objective - Vital Signs/Intake and Output Vital Signs (last 24 hours): Temp Pulse Resp BP Pulse Ox 97.7 F 87 20 156/82 H 96 09/16/18 16:00 09/16/18 16:00 09/16/18 16:00 09/16/18 16:00 09/16/18 16:00 Intake and Output: 09/16/18 09/16/18 06:59 18:59 Intake Total 1780 1280 Balance 1780 1280 - Medications Medications: Current Medications Allopurinol (Zyloprim) 300 mg PO DAILY [facility] Last Admin: 09/16/18 09:55 Dose: 300 mg Aspirin (Ecotrin) 81 mg PO DAILY [facility] Last Admin: 09/16/18 09:55 Dose: 81 mg Colchicine (Colocrys) 0.6 mg PO BID [facility] Last Admin: 09/16/18 18:02 Dose: 0.6 mg Enoxaparin Sodium (Lovenox) 40 mg SC DAILY [facility] Last Admin: 09/16/18 09:55 Dose: 40 mg Hydrochlorothiazide (Microzide) 12.5 mg PO DAILY [facility] Last Admin: 09/16/18 09:55 Dose: 12.5 mg Sodium Chloride (Sodium Chloride 0.9%) 1,000 mls @ 100 mls/hr IV .Q10H [facility] Last Admin: 09/16/18 18:04 Dose: 100 mls/hr Piperacillin Sod/Tazobactam Sod (Zosyn 3.375 Gm Iv Premix) 3.375 gm in 50 mls @ 100 mls/hr IVPB Q6H [facility]; Protocol Last Admin: 09/16/18 14:01 Dose: 100 mls/hr Vancomycin/Sodium Chloride (Vancomycin 1 Gm/Ns 200 Ml) 1 gm in 200 mls @ 133.333 mls/hr IVPB Q12H [facility]; Protocol Stop: 09/21/18 16:31 Last Admin: 09/16/18 17:20 Dose: 133.333 mls/hr Insulin Aspart (Novolog) 0 unit SC ACHS [facility]; Protocol Last Admin: 09/16/18 17:10 Dose: 4 units Losartan Potassium (Cozaar) 50 mg PO DAILY [facility] Last Admin: 09/16/18 09:55 Dose: 50 mg Metformin HCl (Glucophage) 1,000 mg PO BID [facility] Last Admin: 09/16/18 18:02 Dose: 1,000 mg Rosuvastatin Calcium (Crestor) 2.5 mg PO HS [facility] Last Admin: 09/15/18 21:32 Dose: 2.5 mg Sitagliptin Phosphate (Januvia) 100 mg PO DAILY [facility] Last Admin: 09/16/18 09:55 Dose: 100 mg - Labs Labs: 09/15/18 14:19 09/15/18 14:19 PT 10.9 SECONDS (9.7-12.2) 09/15/18 14:19 INR 1.0 09/15/18 14:19 APTT 26 SECONDS (21-34) D 09/15/18 14:19 - Head Exam Head Exam: NORMAL INSPECTION - Eye Exam Eye Exam: Normal appearance - ENT Exam ENT Exam: Mucous Membranes Moist - Respiratory Exam Respiratory Exam: Clear to Ausculation Bilateral, NORMAL BREATHING PATTERN - Cardiovascular Exam Cardiovascular Exam: REGULAR RHYTHM, +S1, +S2 - GI/Abdominal Exam GI & Abdominal Exam: Soft, Normal Bowel Sounds - Extremities Exam Extremities Exam: Normal Inspection Assessment and Plan (1) Diabetic foot ulcer Status: Acute (2) Cellulitis Status: Acute (3) HTN (hypertension) Status: Acute (4) Diabetes Status: Acute - Assessment and Plan (Free Text) Plan: Continue antibiotics Wound care Accu-Chek Insulin sliding scale Blood pressure control DVT/GI prophylaxis
[2018-09-16] MEDS: Rosuvastatin Calcium 2.5 mg Tab PO SCH (21:34)
[2018-09-17] MEDS: Piperacill/Tazo 3.375gm in Dex 3.375 GM/50 ML BAG IVPB SCH ×4 (02:32→21:00)
[2018-09-17] MEDS: Vancomycin 1 gm/NS 200 ml 1 GM/200 ML BAG IVPB SCH ×2 (03:49→16:30)
[2018-09-17 07:02] LABS: HEMOGLOBIN 14.2 g/dL (12.0-18.0); MEAN CELL VOLUME 89.3 fL (80.0-94.0); MEAN CORPUSCULAR HEMOGLOBIN 29.9 pg (27.0-31.0); MEAN CORPUSCULAR HGB CONC 33.5 g/dL (33.0-37.0); MEAN PLATELET VOLUME 8.8 fL (7.2-11.7); RBC 4.74 Mil/uL (4.40-5.90); RED CELL DISTRIBUTION WIDTH 14.1 % (11.5-14.5); WHITE BLOOD COUNT 6.7 K/uL (4.8-10.8)
[2018-09-17 07:10] LABS: INR 0.9; PROTHROMBIN TIME 10.1 SECONDS (9.7-12.2)
[2018-09-17] MEDS: (Novolog) Insulin Aspart, Recombinant 100 u/ml 10 ml vial SC SCH ×4 (08:50→21:59)
[2018-09-17 08:56] LABS: BLOOD UREA NITROGEN 9 mg/dL (9-20); CALCIUM 8.8 mg/dl (8.6-10.4); GFR NON-AFRICAN AMERICAN > 60
[2018-09-17] MEDS: Sodium Chloride 0.9% 1,000 ML IV SCH ×2 (08:57→16:35)
[2018-09-17] MEDS ORDERED: Iodixanol 320 MG/ML 100 ML BOTTLE IV ONE ×3 (13:53→15:09)
[2018-09-17] MEDS ORDERED: Midazolam 2 MG/2 ML VIAL ONE (13:58)
[2018-09-17] MEDS ORDERED: Lidocaine 2% MPF (5 ml) Inj ONE (14:15)
--- NOTE | 2018-09-17 14:15 | CP.PCM.PN ---
Subjective - Date & Time of Evaluation Date of Evaluation: 09/17/18 Time of Evaluation: 14:07 - Subjective Subjective: Podiatry Progress Note for Dr. Vaughn 72M seen at bedside for ischemic changes to left hallux. Patient is accompanied by his son. Patient is AAO x 3 and NAD, resting comfortably in bed. Denies any acute overnight events or new pedal complaints. Denies any pain in his toe at this time. Denies any recent N/V/F/C/CP/SOB/D Objective - Vital Signs/Intake and Output Vital Signs (last 24 hours): Temp Pulse Resp BP Pulse Ox 98.1 F 86 20 158/81 H 98 09/17/18 07:00 09/17/18 07:00 09/17/18 07:00 09/17/18 07:00 09/17/18 07:00 Intake and Output: 09/17/18 09/17/18 06:59 18:59 Intake Total 2280 Balance 2280 - Medications Medications: Current Medications Allopurinol (Zyloprim) 300 mg PO DAILY [facility] Last Admin: 09/17/18 11:16 Dose: Not Given Aspirin (Ecotrin) 81 mg PO DAILY [facility] Last Admin: 09/17/18 11:15 Dose: Not Given Colchicine (Colocrys) 0.6 mg PO BID [facility] Last Admin: 09/17/18 11:14 Dose: Not Given Enoxaparin Sodium (Lovenox) 40 mg SC DAILY [facility] Last Admin: 09/16/18 09:55 Dose: 40 mg Hydrochlorothiazide (Microzide) 12.5 mg PO DAILY [facility] Last Admin: 09/17/18 11:15 Dose: Not Given Sodium Chloride (Sodium Chloride 0.9%) 1,000 mls @ 100 mls/hr IV .Q10H [facility] Last Admin: 09/17/18 08:57 Dose: 100 mls/hr Piperacillin Sod/Tazobactam Sod (Zosyn 3.375 Gm Iv Premix) 3.375 gm in 50 mls @ 100 mls/hr IVPB Q6H [facility]; Protocol Last Admin: 09/17/18 08:51 Dose: 100 mls/hr Vancomycin/Sodium Chloride (Vancomycin 1 Gm/Ns 200 Ml) 1 gm in 200 mls @ 133.3 33 mls/hr IVPB Q12H [facility]; Protocol Stop: 09/21/18 16:31 Last Admin: 09/17/18 03:49 Dose: 133.333 mls/hr Insulin Aspart (Novolog) 0 unit SC ACHS [facility]; Protocol Last Admin: 09/17/18 12:32 Dose: 3 units Losartan Potassium (Cozaar) 50 mg PO DAILY [facility] Last Admin: 09/17/18 11:13 Dose: 50 mg Metformin HCl (Glucophage) 1,000 mg PO BID [facility] Last Admin: 09/17/18 11:15 Dose: Not Given Rosuvastatin Calcium (Crestor) 2.5 mg PO HS [facility] Last Admin: 09/16/18 21:34 Dose: 2.5 mg Sitagliptin Phosphate (Januvia) 100 mg PO DAILY [facility] Last Admin: 09/17/18 11:15 Dose: Not Given - Labs Labs: 09/17/18 06:53 09/17/18 06:53 PT 10.1 SECONDS (9.7-12.2) 09/17/18 06:53 INR 0.9 09/17/18 06:53 APTT 32 SECONDS (21-34) D 09/17/18 06:53 - Constitutional Appears: Well, Non-toxic, No Acute Distress - Extremities Exam Additional comments: LE focused exam: Vasc: DP/PT pulses faintly palpable 1/4 b/l. Skin temperature warm to warm from proximal to distal WNL. CFT increased to all digits. No edema noted b/l Neuro: Epicritic and protective sensation grossly diminished b/l Derm: 1 cm x 2.5 cm ischemic eschar noted to medial aspect of left hallux. No periwound erythema, malodor, drainage, fluctuance or other clinical signs of infection. Otherwise no open lesions, wounds, maceration, xerosis, abnormal pigmentation or abnormal growths noted MSK: No POP to ischemic site. ROM to all digits slightly decreased. MMT 4/5 in all major muscle groups. No gross deformities noted at this time - Neurological Exam Neurological Exam: Alert, Awake, Oriented x3 - Psychiatric Exam Psychiatric exam: Normal Affect, Normal Mood Assessment and Plan - Assessment and Plan (Free Text) Assessment: 72M seen at bedside for ischemic changes to left hallux Plan: Patient seen and evaluated with Dr. Vaughn Afebrile, absent leukocytosis Continue abx per ID Wound culture left foot: Coag Negative Staph F/u vascular recommendations and studies Continue multipodus boots at all times while in bed Will discuss surgical intervention with Dr. Vaughn pending vascular intervention Wound dressed with betadine, DSD Podiatry will continue to follow while patient in house
[2018-09-17] MEDS ORDERED: Labetalol 5mg/ml (4ml) ONE (14:18)
--- NOTE | 2018-09-17 15:57 | PCM.SURG1 ---
Surgeon's Initial Post Op Note - Surgeon's Notes Surgeon: larry Motor Checker: 0 Type of Anesthesia: IV Sedation Anesthesia Administered By: keyur Pre-Operative Diagnosis: ischemic left toe ulcer Operative Findings: severe trifurcation disease. no named vessel in foot on left. 2-2.5 balloon angioplasty of anterior tibial and peroneal. 4.0 balloon angioplasty of popliteal. perclose right groin Post-Operative Diagnosis: same Operation Performed: aortofemoral angiogram via right groin. selective catherization of left femoral artery. balloon angioplasty of AT/peroneal /popliteal. perclose right groin Specimen/Specimens Removed: 0 Estimated Blood Loss: EBL {In ML}: 25 Blood Products Given: N/A Drains Used: No Drains Post-Op Condition: Good Date of Surgery/Procedure: 09/17/18 Time of Surgery/Procedure: 15:58
[2018-09-17] MEDS: Dextrose 5%/0.45% NS 1,000 ML IV SCH (17:51)
--- NOTE | 2018-09-17 19:00 | CP.PCM.PN ---
Subjective - Date & Time of Evaluation Date of Evaluation: 09/17/18 Time of Evaluation: 18:59 - Subjective Subjective: Patient is seen and examined No events overnight Objective - Vital Signs/Intake and Output Vital Signs (last 24 hours): Temp Pulse Resp BP Pulse Ox 98.1 F 86 20 158/81 H 98 09/17/18 07:00 09/17/18 07:00 09/17/18 07:00 09/17/18 07:00 09/17/18 07:00 Intake and Output: 09/17/18 09/17/18 06:59 18:59 Intake Total 2280 1040 Balance 2280 1040 - Medications Medications: Current Medications Allopurinol (Zyloprim) 300 mg PO DAILY [facility] Last Admin: 09/17/18 11:16 Dose: Not Given Aspirin (Ecotrin) 81 mg PO DAILY [facility] Last Admin: 09/17/18 11:15 Dose: Not Given Colchicine (Colocrys) 0.6 mg PO BID [facility] Last Admin: 09/17/18 18:09 Dose: 0.6 mg Enoxaparin Sodium (Lovenox) 40 mg SC DAILY [facility] Last Admin: 09/16/18 09:55 Dose: 40 mg Hydrochlorothiazide (Microzide) 12.5 mg PO DAILY [facility] Last Admin: 09/17/18 11:15 Dose: Not Given Sodium Chloride (Sodium Chloride 0.9%) 1,000 mls @ 100 mls/hr IV .Q10H [facility] Last Admin: 09/17/18 08:57 Dose: 100 mls/hr Piperacillin Sod/Tazobactam Sod (Zosyn 3.375 Gm Iv Premix) 3.375 gm in 50 mls @ 100 mls/hr IVPB Q6H [facility]; Protocol Last Admin: 09/17/18 14:34 Dose: Not Given Vancomycin/Sodium Chloride (Vancomycin 1 Gm/Ns 200 Ml) 1 gm in 200 mls @ 133.333 mls/hr IVPB Q12H [facility]; Protocol Stop: 09/21/18 16:31 Last Admin: 09/17/18 16:30 Dose: 133.333 mls/hr Dextrose/Sodium Chloride (Dextrose 5%/0.45% Ns 1000 Ml) 1,000 mls @ 100 mls/hr IV .Q10H [facility] Last Admin: 09/17/18 17:51 Dose: 100 mls/hr Insulin Aspart (Novolog) 0 unit SC ACHS [facility]; Protocol Last Admin: 09/17/18 16:30 Dose: 2 units Losartan Potassium (Cozaar) 50 mg PO DAILY [facility] Last Admin: 09/17/18 11:13 Dose: 50 mg Metformin HCl (Glucophage) 1,000 mg PO BID [facility] Last Admin: 09/17/18 17:53 Dose: 1,000 mg Rosuvastatin Calcium (Crestor) 2.5 mg PO HS [facility] Last Admin: 09/16/18 21:34 Dose: 2.5 mg Sitagliptin Phosphate (Januvia) 100 mg PO DAILY [facility] Last Admin: 09/17/18 11:15 Dose: Not Given - Labs Labs: 09/17/18 06:53 09/17/18 06:53 PT 10.1 SECONDS (9.7-12.2) 09/17/18 06:53 INR 0.9 09/17/18 06:53 APTT 32 SECONDS (21-34) D 09/17/18 06:53 - Head Exam Head Exam: NORMAL INSPECTION - Eye Exam Eye Exam: Normal appearance - ENT Exam ENT Exam: Mucous Membranes Moist - Respiratory Exam Respiratory Exam: Clear to Ausculation Bilateral - Cardiovascular Exam Cardiovascular Exam: REGULAR RHYTHM - GI/Abdominal Exam GI & Abdominal Exam: Soft, Normal Bowel Sounds - Extremities Exam Extremities Exam: Normal Inspection Assessment and Plan (1) Diabetic foot ulcer Status: Acute (2) Cellulitis Status: Acute (3) HTN (hypertension) Status: Acute (4) Diabetes Status: Acute - Assessment and Plan (Free Text) Plan: Continue antibiotics Wound care Accu-Chek Insulin sliding scale Blood pressure control DVT/GI prophylaxis
[2018-09-17] MEDS: Rosuvastatin Calcium 2.5 mg Tab PO SCH (21:57)
[2018-09-18] MEDS: Piperacill/Tazo 3.375gm in Dex 3.375 GM/50 ML BAG IVPB SCH ×3 (02:25→14:20)
[2018-09-18] MEDS: Sodium Chloride 0.9% 1,000 ML IV SCH (02:49)
[2018-09-18] MEDS: Dextrose 5%/0.45% NS 1,000 ML IV SCH ×2 (02:51→02:53)
[2018-09-18] MEDS: Vancomycin 1 gm/NS 200 ml 1 GM/200 ML BAG IVPB SCH ×2 (04:38→16:35)
[2018-09-18 07:04] LABS: ALB/GLOB RATIO 1.2 (1.0-2.1); ALBUMIN 3.4 g/dL (3.5-5.0); ALT/SGPT 16 U/L (21-72); AST/SGOT 25 U/L (17-59); BLOOD UREA NITROGEN 8 mg/dL (9-20); CALCIUM 8.3 mg/dl (8.6-10.4); GFR NON-AFRICAN AMERICAN > 60
[2018-09-18 07:13] LABS: HEMOGLOBIN 12.3 g/dL (12.0-18.0); MEAN CELL VOLUME 89.4 fL (80.0-94.0); MEAN CORPUSCULAR HGB CONC 33.5 g/dL (33.0-37.0); MEAN PLATELET VOLUME 9.1 fL (7.2-11.7); RBC 4.11 Mil/uL (4.40-5.90); RED CELL DISTRIBUTION WIDTH 14.2 % (11.5-14.5); WHITE BLOOD COUNT 7.6 K/uL (4.8-10.8)
[2018-09-18] MEDS: (Novolog) Insulin Aspart, Recombinant 100 u/ml 10 ml vial SC SCH ×3 (08:53→16:30)
--- NOTE | 2018-09-18 10:33 | CP.PCM.PN ---
Subjective - Date & Time of Evaluation Date of Evaluation: 09/18/18 Time of Evaluation: 07:00 - Subjective Subjective: VASCULAR SURGERY PROGRESS NOTE FOR DR. SHIN Patient seen and examined at bedside s/p angio yesterday. Pt denies complaints. Ambulating to bathroom. Objective - Vital Signs/Intake and Output Vital Signs (last 24 hours): Temp Pulse Resp BP Pulse Ox 97.8 F 103 H 20 165/84 H 96 09/18/18 08:00 09/18/18 08:00 09/18/18 08:00 09/18/18 08:00 09/18/18 08:00 Intake and Output: 09/18/18 09/18/18 06:59 18:59 Intake Total 2100 Balance 2100 - Medications Medications: Current Medications Allopurinol (Zyloprim) 300 mg PO DAILY [facility] Last Admin: 09/17/18 11:16 Dose: Not Given Aspirin (Ecotrin) 81 mg PO DAILY [facility] Last Admin: 09/17/18 11:15 Dose: Not Given Colchicine (Colocrys) 0.6 mg PO BID [facility] Last Admin: 09/17/18 18:09 Dose: 0.6 mg Enoxaparin Sodium (Lovenox) 40 mg SC DAILY [facility] Last Admin: 09/16/18 09:55 Dose: 40 mg Hydrochlorothiazide (Microzide) 12.5 mg PO DAILY [facility] Last Admin: 09/17/18 11:15 Dose: Not Given Sodium Chloride (Sodium Chloride 0.9%) 1,000 mls @ 100 mls/hr IV .Q10H [facility] Last Admin: 09/18/18 02:49 Dose: 100 mls/hr Piperacillin Sod/Tazobactam Sod (Zosyn 3.375 Gm Iv Premix) 3.375 gm in 50 mls @ 100 mls/hr IVPB Q6H [facility]; Protocol Last Admin: 09/18/18 02:25 Dose: 100 mls/hr Vancomycin/Sodium Chloride (Vancomycin 1 Gm/Ns 200 Ml) 1 gm in 200 mls @ 133.333 mls/hr IVPB Q12H [facility]; Protocol Stop: 09/21/18 16:31 Last Admin: 09/18/18 04:38 Dose: 133.333 mls/hr Dextrose/Sodium Chloride (Dextrose 5%/0.45% Ns 1000 Ml) 1,000 mls @ 100 mls/hr IV .Q10H [facility] Last Admin: 09/18/18 02:53 Dose: Not Given Insulin Aspart (Novolog) 0 unit SC ACHS [facility]; Protocol Last Admin: 09/18/18 08:53 Dose: 3 units Losartan Potassium (Cozaar) 50 mg PO DAILY [facility] Last Admin: 09/17/18 11:13 Dose: 50 mg Metformin HCl (Glucophage) 1,000 mg PO BID [facility] Last Admin: 09/17/18 17:53 Dose: 1,000 mg Rosuvastatin Calcium (Crestor) 2.5 mg PO HS [facility] Last Admin: 09/17/18 21:57 Dose: 2.5 mg Sitagliptin Phosphate (Januvia) 100 mg PO DAILY [facility] Last Admin: 09/17/18 11:15 Dose: Not Given - Labs Labs: 09/18/18 06:33 09/18/18 06:33 PT 10.1 SECONDS (9.7-12.2) 09/17/18 06:53 INR 0.9 09/17/18 06:53 APTT 32 SECONDS (21-34) D 09/17/18 06:53 - Constitutional Appears: Non-toxic, No Acute Distress - Head Exam Head Exam: ATRAUMATIC, NORMAL INSPECTION - Respiratory Exam Respiratory Exam: NORMAL BREATHING PATTERN. absent: Respiratory Distress - Cardiovascular Exam Cardiovascular Exam: +S1, +S2 - Extremities Exam Additional comments: Right groin dressing clean/dry/intact. No hematoma/edema/drainage Foot warm, wrapped in ninfa Assessment and Plan - Assessment and Plan (Free Text) Assessment: 72yo M with ischemic left toe ulcer s/p angiogram via right groin. selective catherization of left femoral artery. balloon angioplasty of AT/peroneal /popliteal. POD#1 - No further surgical intervention necessary - Follow up with Dr. Shin in his office in 1-2 weeks - Discussed plan with Dr. Ford Gallardo PGY-4
[2018-09-18] MEDS: Enoxaparin 40 mg Syringe SC SCH (10:46)
--- NOTE | 2018-09-18 11:49 | CP.PCM.PN ---
Subjective - Date & Time of Evaluation Date of Evaluation: 09/18/18 Time of Evaluation: 11:47 - Subjective Subjective: Podiatry Progress Note for Dr. Vaughn 72M seen at bedside for ischemic changes to left hallux with Dr. Vaughn. Patient is AAO x 3 and NAD, resting comfortably in bed. Denies any acute overnight events or new pedal complaints. Denies any pain in his toe at this time. Denies any recent N/V/F/C/CP/SOB/D Objective - Vital Signs/Intake and Output Vital Signs (last 24 hours): Temp Pulse Resp BP Pulse Ox 97.8 F 103 H 20 165/84 H 96 09/18/18 08:00 09/18/18 08:00 09/18/18 08:00 09/18/18 08:00 09/18/18 08:00 Intake and Output: 09/18/18 09/18/18 06:59 18:59 Intake Total 2100 Balance 2100 - Medications Medications: Current Medications Allopurinol (Zyloprim) 300 mg PO DAILY [facility] Last Admin: 09/18/18 10:47 Dose: 300 mg Aspirin (Ecotrin) 81 mg PO DAILY [facility] Last Admin: 09/18/18 10:47 Dose: 81 mg Colchicine (Colocrys) 0.6 mg PO BID [facility] Last Admin: 09/18/18 10:46 Dose: 0.6 mg Enoxaparin Sodium (Lovenox) 40 mg SC DAILY [facility] Last Admin: 09/18/18 10:46 Dose: 40 mg Hydrochlorothiazide (Microzide) 12.5 mg PO DAILY [facility] Last Admin: 09/18/18 10:47 Dose: 12.5 mg Sodium Chloride (Sodium Chloride 0.9%) 1,000 mls @ 100 mls/hr IV .Q10H [facility] Last Admin: 09/18/18 02:49 Dose: 100 mls/hr Piperacillin Sod/Tazobactam Sod (Zosyn 3.375 Gm Iv Premix) 3.375 gm in 50 mls @ 100 mls/hr IVPB Q6H [facility]; Protocol Last Admin: 09/18/18 10:47 Dose: 100 mls/hr Vancomycin/Sodium Chloride (Vancomycin 1 Gm/Ns 200 Ml) 1 gm in 200 mls @ 133.333 mls/hr IVPB Q12H [facility]; Protocol Stop: 09/21/18 16:31 Last Admin: 09/18/18 04:38 Dose: 133.333 mls/hr Dextrose/Sodium Chloride (Dextrose 5%/0.45% Ns 1000 Ml) 1,000 mls @ 100 mls/hr IV .Q10H [facility] Last Admin: 09/18/18 02:53 Dose: Not Given Insulin Aspart (Novolog) 0 unit SC ACHS [facility]; Protocol Last Admin: 09/18/18 08:53 Dose: 3 units Losartan Potassium (Cozaar) 50 mg PO DAILY [facility] Last Admin: 09/18/18 10:47 Dose: 50 mg Metformin HCl (Glucophage) 1,000 mg PO BID [facility] Last Admin: 09/18/18 10:47 Dose: 1,000 mg Rosuvastatin Calcium (Crestor) 2.5 mg PO HS [facility] Last Admin: 09/17/18 21:57 Dose: 2.5 mg Sitagliptin Phosphate (Januvia) 100 mg PO DAILY [facility] Last Admin: 09/18/18 10:50 Dose: 100 mg - Labs Labs: 09/18/18 06:33 09/18/18 06:33 PT 10.1 SECONDS (9.7-12.2) 09/17/18 06:53 INR 0.9 09/17/18 06:53 APTT 32 SECONDS (21-34) D 09/17/18 06:53 - Constitutional Appears: Well, Non-toxic, No Acute Distress - Extremities Exam Additional comments: LE focused exam: Vasc: DP/PT pulses faintly palpable 1/4 b/l. Skin temperature warm to warm from proximal to distal WNL. CFT increased to all digits. No edema noted b/l. Foot noted to be warmer to touch today than yesterday Neuro: Epicritic and protective sensation grossly diminished b/l Derm: 1 cm x 2.5 cm ischemic eschar noted to medial aspect of left hallux. No periwound erythema, malodor, drainage, fluctuance or other clinical signs of i nfection. Otherwise no open lesions, wounds, maceration, xerosis, abnormal pigmentation or abnormal growths noted MSK: No POP to ischemic site. ROM to all digits slightly decreased. MMT 4/5 in all major muscle groups. No gross deformities noted at this time - Neurological Exam Neurological Exam: Alert, Awake, Oriented x3 - Psychiatric Exam Psychiatric exam: Normal Affect, Normal Mood Assessment and Plan - Assessment and Plan (Free Text) Assessment: 72M seen at bedside for ischemic changes to left hallux with Dr. Vaughn Plan: Patient seen and evaluated with Dr. Vaughn Afebrile, absent leukocytosis Continue abx per ID Wound cx: Coag neg staph Patient underwent revascularization of RLE yesterday with Dr. Youngblood No plan for podiatric surgical intervention at this time Patient is stable from podiatric standpoint Upon discharge patient should follow up with Dr. Holcomb at [facility] and with Dr. Vaughn in his office within one week Wound dressed with betadine, DSD Patient may walk on heel with surgical shoe as tolerated Podiatry will continue to follow while patient in house
--- NOTE | 2018-09-18 12:11 | VASCLAB ---
Date of service: 09/16/2018 STUDY DESCRIPTION: Lower Extremity Arterial Exam (PVR). HISTORY: Arterial ulcer PRIORS: None. TECHNIQUE: Pulse volume recording waveforms and segmental pressures of bilateral lower extremities at multiple levels were obtained. Ankle Brachial Indices (ABIs) were calculated. Report prepared by DELBERT Bahena, RVT RIGHT LOWER EXTREMITY: * Brachial artery: Pressure - 169 mmHg. * High thigh: Pressure - 220 mmHg PVR waveform - Pulsatile * Low thigh: Pressure - 177 mmHg: Ratio - 1.05 PVR waveform: Pulsatile * Calf: Pressure - 220 mmHg - PVR waveform: Pulsatile * Posterior tibial Artery: Pressure - 188 mmHg: Ratio - 1.11 PVR waveform: Pulsatile * Dorsalis pedis Artery: Pressure - 87 mmHg: Ratio - 0.51 PVR waveform: Reduced Ankle brachial index (MITRA): 1.11 LEFT LOWER EXTREMITY: * Brachial artery: Pressure - 161 mmHg. * High thigh: Pressure - 220 mmHg PVR waveform - Pulsatile * Low thigh: Pressure - 220 mmHg PVR waveform: Pulsatile * Calf: Pressure - 220 mmHg PVR waveform: Pulsatile * Posterior tibial Artery: Pressure - 152 mmHg: Ratio - 0.90 PVR waveform: Pulsatile * Dorsalis pedis Artery: Pressure - 220 mmHg PVR waveform: Reduced Ankle brachial index (MITRA): 0.90 OTHER FINDINGS: IMPRESSION: Right: Normal ankle brachial index of 1.11. However, reduced arterial PVR waveforms at the metatarsal level suggest distal small vessel disease. Left: Normal ankle brachial index of 0.90. However, reduced arterial PVR waveforms at the metatarsal level suggest distal small vessel disease.
--- NOTE | 2018-09-18 16:29 | CP.PCM.PN ---
Subjective - Date & Time of Evaluation Date of Evaluation: 09/18/18 Time of Evaluation: 16:29 Objective - Vital Signs/Intake and Output Vital Signs (last 24 hours): Temp Pulse Resp BP Pulse Ox 97.8 F 103 H 20 165/84 H 96 09/18/18 08:00 09/18/18 08:00 09/18/18 08:00 09/18/18 08:00 09/18/18 08:00 Intake and Output: 09/18/18 09/18/18 06:59 18:59 Intake Total 2100 1040 Balance 2100 1040 - Medications Medications: Current Medications Allopurinol (Zyloprim) 300 mg PO DAILY [facility] Last Admin: 09/18/18 10:47 Dose: 300 mg Aspirin (Ecotrin) 81 mg PO DAILY [facility] Last Admin: 09/18/18 10:47 Dose: 81 mg Colchicine (Colocrys) 0.6 mg PO BID [facility] Last Admin: 09/18/18 10:46 Dose: 0.6 mg Enoxaparin Sodium (Lovenox) 40 mg SC DAILY [facility] Last Admin: 09/18/18 10:46 Dose: 40 mg Hydrochlorothiazide (Microzide) 12.5 mg PO DAILY [facility] Last Admin: 09/18/18 10:47 Dose: 12.5 mg Piperacillin Sod/Tazobactam Sod (Zosyn 3.375 Gm Iv Premix) 3.375 gm in 50 mls @ 100 mls/hr IVPB Q6H [facility]; Protocol Last Admin: 09/18/18 14:20 Dose: 100 mls/hr Vancomycin/Sodium Chloride (Vancomycin 1 Gm/Ns 200 Ml) 1 gm in 200 mls @ 133.333 mls/hr IVPB Q12H [facility]; Protocol Stop: 09/21/18 16:31 Last Admin: 09/18/18 04:38 Dose: 133.333 mls/hr Insulin Aspart (Novolog) 0 unit SC ACHS [facility]; Protocol Last Admin: 09/18/18 12:45 Dose: 4 units Losartan Potassium (Cozaar) 50 mg PO DAILY [facility] Last Admin: 09/18/18 10:47 Dose: 50 mg Metformin HCl (Glucophage) 1,000 mg PO BID [facility] Last Admin: 09/18/18 10:47 Dose: 1,000 mg Rosuvastatin Calcium (Crestor) 2.5 mg PO HS [facility] Last Admin: 09/17/18 21:57 Dose: 2.5 mg Sitagliptin Phosphate (Januvia) 100 mg PO DAILY [facility] Last Admin: 09/18/18 10:50 Dose: 100 mg - Labs Labs: 09/18/18 06:33 09/18/18 06:33 PT 10.1 SECONDS (9.7-12.2) 09/17/18 06:53 INR 0.9 09/17/18 06:53 APTT 32 SECONDS (21-34) D 09/17/18 06:53 Assessment and Plan (1) Diabetic foot ulcer Status: Acute (2) Cellulitis Status: Acute (3) HTN (hypertension) Status: Acute (4) Diabetes Status: Acute
[2018-09-18 16:39] VITALS: BP 143/81; PULSE 97; TEMP 97.9; O2SAT 98
--- NOTE | 2018-09-18 17:37 | CP.PCM.PN ---
Subjective - Date & Time of Evaluation Date of Evaluation: 09/18/18 Time of Evaluation: 17:37 Objective - Vital Signs/Intake and Output Vital Signs (last 24 hours): Temp Pulse Resp BP Pulse Ox 97.9 F 97 H 20 143/81 98 09/18/18 16:00 09/18/18 16:00 09/18/18 16:00 09/18/18 16:00 09/18/18 16:00 Intake and Output: 09/18/18 09/18/18 06:59 18:59 Intake Total 2100 1040 Balance 2100 1040 - Medications Medications: Current Medications Allopurinol (Zyloprim) 300 mg PO DAILY [facility] Last Admin: 09/18/18 10:47 Dose: 300 mg Aspirin (Ecotrin) 81 mg PO DAILY [facility] Last Admin: 09/18/18 10:47 Dose: 81 mg Colchicine (Colocrys) 0.6 mg PO BID [facility] Last Admin: 09/18/18 17:13 Dose: 0.6 mg Enoxaparin Sodium (Lovenox) 40 mg SC DAILY [facility] Last Admin: 09/18/18 10:46 Dose: 40 mg Hydrochlorothiazide (Microzide) 12.5 mg PO DAILY [facility] Last Admin: 09/18/18 10:47 Dose: 12.5 mg Piperacillin Sod/Tazobactam Sod (Zosyn 3.375 Gm Iv Premix) 3.375 gm in 50 mls @ 100 mls/hr IVPB Q6H [facility]; Protocol Last Admin: 09/18/18 14:20 Dose: 100 mls/hr Vancomycin/Sodium Chloride (Vancomycin 1 Gm/Ns 200 Ml) 1 gm in 200 mls @ 133.333 mls/hr IVPB Q12H [facility]; Protocol Stop: 09/21/18 16:31 Last Admin: 09/18/18 16:35 Dose: 133.333 mls/hr Insulin Aspart (Novolog) 0 unit SC ACHS [facility]; Protocol Last Admin: 09/18/18 16:30 Dose: 4 units Losartan Potassium (Cozaar) 50 mg PO DAILY [facility] Last Admin: 09/18/18 10:47 Dose: 50 mg Metformin HCl (Glucophage) 1,000 mg PO BID [facility] Last Admin: 09/18/18 17:14 Dose: 1,000 mg Rosuvastatin Calcium (Crestor) 2.5 mg PO HS [facility] Last Admin: 09/17/18 21:57 Dose: 2.5 mg Sitagliptin Phosphate (Januvia) 100 mg PO DAILY [facility] Last Admin: 09/18/18 10:50 Dose: 100 mg - Labs Labs: 09/18/18 06:33 09/18/18 06:33 PT 10.1 SECONDS (9.7-12.2) 09/17/18 06:53 INR 0.9 09/17/18 06:53 APTT 32 SECONDS (21-34) D 09/17/18 06:53 Assessment and Plan - Assessment and Plan (Free Text) Assessment: FOLLOW UP WITH DR AVILA IN HIS OFFICE -----CALL FOR APPOINTMENT FOLLOW UP WITH DR LUGO FOLLOW UP WITH DR SHIN IN 1-2 WEEK ----CALL FOR APPOINTMENT Upon discharge patient should follow up with Dr. Holcomb at [facility] and with Dr. Vaughn in his office within one week Wound dressed with betadine, DSD Patient may walk on heel with surgical shoe as tolerated CONTINUE HOME MEDICATION NEW PRESCRIPTION GIVEN ZYVOX 600 MG PO Q12H FOR 5 DAYS ACTIVITY TOLERATED CALL DR AVILA OR GO TO THE EMERGENCY ROOM IF SYMPTOM RETURN OR WORSENING
--- NOTE | 2018-09-19 21:57 | VAS ---
DATE: 09/17/2018 PREOPERATIVE DIAGNOSIS: Ischemic ulceration, left great toe. POSTOPERATIVE DIAGNOSIS: Ischemic ulceration, left great toe. PROCEDURE CARRIED OUT: 1. Aortofemoral angiogram via right groin with selective catheterization of left femoral artery. 2. Balloon angioplasty of anterior tibial and peroneal artery. 3. Balloon angioplasty of the popliteal artery. SURGEON: Samuel Youngblood Jr., MD REHABILITATION ATTENDANT: None. ANESTHESIOLOGIST: Mr. Owens. INDICATIONS: The patient is an older middle-aged man with diabetes, ischemic ulcer of the toe. OPERATIVE FINDINGS: The aorta, renal arteries, iliac arteries, common femoral arteries, superficial femoral arteries, profunda femoris arteries were free of significant occlusive disease. On the right side, it appeared that the proximal portion of the trifurcation was open, but detailed pictures were not taken below this due to body habitus. 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 The anterior tibial was open in its proximal segment and was the major vessel into the foot. However, this had a stenosis in its mid portion of approximately 80%, and distally, it was occluded at the ankle with reconstitution of a twig in the foot itself. The peroneal artery was also diseased throughout its course. Subsequent to the performance of the diagnostic arteriogram, a stiff-angled guidewire was advanced over the aortic bifurcation, and a 6-Lao sheath positioned in the popliteal artery. Using road mapping techniques, the anterior tibial was crossed, down to the level of the ankle, but not into the remnant of the foot. A balloon angioplasty was carried out, and we were unable to advance the catheter over the 0.014 wire which was there. We used a variety of techniques to attempt to cross the final lesion, but we were unable to do so. We then ballooned this with a tapered 2 to 2.5 mm balloon up to the tibial peroneal trunk. We then were able to cross the peroneal artery again down to the ankle. We were unable to advance the catheter over this. We were able to advance the balloon over it, so the proximal portion was dilated with a 2 x 2.5 mm balloon. There appeared to be some atherosclerotic disease in the popliteal artery, which was poorly seen on the initial films and subsequently seen. We then ballooned this with up to a 4.3 balloon with good cosmetic results. We then removed the catheter and applied pressure to the groin after applying a Perclose device. Blood loss for the procedure was 25 mL. Nonetheless, we were unable to enter into the foot. There was no named vessel into the foot to improve the circulation. Samuel Youngblood Jr., MD cc: MARYCARMEN Da Silva DPM
--- NOTE | 2018-09-22 00:28 | CP.PCM.DIS ---
Provider - Provider Date of Admission: 09/15/18 14:34 Attending physician: Arina Mendieta MD Consults: 09/15/18 17:58 Infectious Disease Consult Routine Comment: Consulting Provider: Micheal Santacruz Consulting Physician: Micheal Santacruz Reason for Consult: left hallux ulcer/gangrene Vascular Surgery Routine Comment: Consulting Provider: Samuel Youngblood Jr. Physician Instructions: Reason For Exam: left hallux ulcer/dry gangrene 09/15/18 19:29 Podiatry Consult Routine Comment: Consulting Provider: Xiang Vaughn Consulting Physician: Xiang Vaughn Reason for Consult: diabetic foot ulcer Time Spent in preparation of Discharge (in minutes): 25 Diagnosis - Discharge Diagnosis (1) Diabetic foot ulcer Status: Acute (2) Cellulitis Status: Acute (3) HTN (hypertension) Status: Acute (4) Diabetes Status: Acute Hospital Course - Lab Results Lab Results: Micro Results 09/15/18 14:30 Blood Blood Culture - Final NO GROWTH AFTER 5 DAYS 09/15/18 14:30 Blood Gram Stain - Final TEST NOT PERFORMED 09/15/18 14:00 Blood Blood Culture - Final NO GROWTH AFTER 5 DAYS 09/15/18 14:00 Blood Gram Stain - Final TEST NOT PERFORMED 09/15/18 18:17 Foot - Left Gram Stain - Final 09/15/18 18:17 Foot - Left Wound Culture - Final Coagulase Neg Staphylococcus Most Recent Lab Values WBC 7.6 K/uL (4.8-10.8) 09/18/18 06:33 RBC 4.11 Mil/uL (4.40-5.90) L 09/18/18 06:33 Hgb 12.3 g/dL (12.0-18.0) 09/18/18 06:33 Hct 36.7 % (35.0-51.0) 09/18/18 06:33 MCV 89.4 fL (80.0-94.0) 09/18/18 06:33 MCH 30.0 pg (27.0-31.0) 09/18/18 06:33 MCHC 33.5 g/dL (33.0-37.0) 09/18/18 06:33 RDW 14.2 % (11.5-14.5) 09/18/18 06:33 Plt Count 244 K/uL (130-400) 09/18/18 06:33 MPV 9.1 fL (7.2-11.7) 09/18/18 06:33 Neut % (Auto) 75.6 % (50.0-75.0) H 09/15/18 14:19 Lymph % (Auto) 15.8 % (20.0-40.0) L 09/15/18 14:19 Gordon % (Auto) 7.7 % (0.0-10.0) 09/15/18 14:19 Eos % (Auto) 0.6 % (0.0-4.0) 09/15/18 14:19 Baso % (Auto) 0.3 % (0.0-2.0) 09/15/18 14: Neut # (Auto) 5.6 K/uL (1.8-7.0) 09/15/18 14:19 Lymph # (Auto) 1.2 K/uL (1.0-4.3) 09/15/18 14:19 Gordon # (Auto) 0.6 K/uL (0.0-0.8) 09/15/18 14:19 Eos # (Auto) 0.0 K/uL (0.0-0.7) 09/15/18 14:19 Baso # (Auto) 0.0 K/uL (0.0-0.2) 09/15/18 14:19 PT 10.1 SECONDS (9.7-12.2) 09/17/18 06:53 INR 0.9 09/17/18 06:53 APTT 32 SECONDS (21-34) D 09/17/18 06:53 pO2 34 mm/Hg (30-55) 09/15/18 14:25 VBG pH 7.34 (7.32-7.43) 09/15/18 14:25 VBG pCO2 42 mmHg (40-60) 09/15/18 14:25 VBG HCO3 21.6 mmol/L 09/15/18 14:25 VBG Total CO2 24.0 mmol/L (22-28) 09/15/18 14:25 VBG O2 Sat (Calc) 67.2 % (40-65) H 09/15/18 14:25 VBG Base Excess -3.0 mmol/L (0.0-2.0) L 09/15/18 14:25 VBG Potassium 4.1 mmol/L (3.6-5.2) 09/15/18 14:25 Sodium 133.0 mmol/l (132-148) 09/15/18 14:25 Chloride 98.0 mmol/L (98-107) 09/15/18 14:25 Glucose 451 mg/dl (75-110) H* 09/15/18 14:25 Lactate 1.5 mmol/L (0.7-2.1) 09/15/18 14:25 Crit Value Called To nanci Narvaez,rn 09/15/18 14:25 Crit Value Called By rt Antione 09/15/18 14:25 Crit Value Read Back Y 09/15/18 14:25 Blood Gas Notified Time 1439 09/15/18 14:25 Sodium 136 mmol/L (132-148) 09/18/18 06:33 Potassium 3.4 mmol/L (3.6-5.2) L 09/18/18 06:33 Chloride 102 mmol/L (98-107) 09/18/18 06:33 Carbon Dioxide 26 mmol/L (22-30) 09/18/18 06:33 Anion Gap 12 (10-20) 09/18/18 06:33 BUN 8 mg/dL (9-20) L 09/18/18 06:33 Creatinine 0.8 mg/dL (0.8-1.5) 09/18/18 06:33 Est GFR ( Amer) > 60 09/18/18 06:33 Est GFR (Non-Af Amer) > 60 09/18/18 06:33 POC Glucose (mg/dL) 271 mg/dL (65-110) H 09/18/18 16:27 Random Glucose 232 mg/dL (75-110) H 09/18/18 06:33 Calcium 8.3 mg/dl (8.6-10.4) L 09/18/18 06:33 Total Bilirubin 0.3 mg/dL (0.2-1.3) 09/18/18 06:33 AST 25 U/L (17-59) 09/18/18 06:33 ALT 16 U/L (21-72) L 09/18/18 06:33 Alkaline Phosphatase 82 U/L (38-126) 09/18/18 06:33 Total Protein 6.1 g/dL (6.3-8.3) L 09/18/18 06:33 Albumin 3.4 g/dL (3.5-5.0) L 09/18/18 06:33 Globulin 2.7 gm/dL (2.2-3.9) 09/18/18 06:33 Albumin/Globulin Ratio 1.2 (1.0-2.1) 09/18/18 06:33 Venous Blood Potassium 4.1 mmol/L (3.6-5.2) 09/15/18 14:25 Vancomycin Trough 11.5 ug/mL (5.0-10.0) H 09/18/18 03:05 Blood Type O POSITIVE 09/17/18 06:53 Antibody Screen Negative 09/17/18 06:53 - Hospital Course Hospital Course: 72-year-old male with uncontrolled diabetes presented with lower extremity ulcer which was infected. Patient was treated with IV antibiotics and was evaluated by podiatry and vascular surgery. No acute intervention was needed. Patient is discharged home with oral antibiotics and to follow-up with podiatry. Discharge Exam - Head Exam Head Exam: ATRAUMATIC, NORMAL INSPECTION - Eye Exam Eye Exam: Normal appearance - ENT Exam ENT Exam: Mucous Membranes Moist - Respiratory Exam Respiratory Exam: Clear to PA & Lateral - Cardiovascular Exam Cardiovascular Exam: REGULAR RHYTHM - GI/Abdominal Exam GI & Abdominal Exam: Normal Bowel Sounds - Extremities Exam Extremities exam: normal inspection - Neurological Exam Neurological exam: Alert, Oriented x3 - Psychiatric Exam Psychiatric exam: Normal Affect, Normal Mood Discharge Plan - Discharge Medications Prescriptions: Linezolid [Zyvox] 600 mg PO Q12H 5 Days tab - Follow Up Plan Condition: GOOD Disposition: HOME/ ROUTINE Instructions: Diabetes Exchange Diet, DASH Diet, Diabetic Foot Ulcer (DC), Low Salt Diet, Linezolid, Diabetic Meal Planning Additional Instructions: FOLLOW UP WITH DR MENDIETA IN HIS OFFICE -----CALL FOR APPOINTMENT FOLLOW UP WITH DR SANTACRUZ FOLLOW UP WITH DR YOUNGBLOOD IN 1-2 WEEK ----CALL FOR APPOINTMENT Upon discharge patient should follow up with Dr. Holcomb at [facility] and with Dr. Purisima in his office within one week Wound dressed with betadine, DSD Patient may walk on heel with surgical shoe as tolerated CONTINUE HOME MEDICATION NEW PRESCRIPTION GIVEN ZYVOX 600 MG PO Q12H FOR 5 DAYS ACTIVITY TOLERATED CALL DR MENDIETA OR GO TO THE EMERGENCY ROOM IF SYMPTOM RETURN OR WORSENING Referrals: Arina Mendieta MD [Staff Provider] - Preston Holcomb DPM [Staff Provider] - Micheal Santacruz MD [Staff Provider] - Samuel Youngblood Jr., MD [Staff Provider] -
== END 2018-09-18 18:50 | disposition home or self-care (01) | DRG 253 ==
LOC: C.ER 13:35 → C.9E 14:34 → C.3T 16:58
PROVIDERS: ADMIT Internal Medicine Critical Care Medicine; ATTEND Internal Medicine Critical Care Medicine
PROC: 047Q3ZZ Dilation of Left Anterior Tibial Artery, Percutaneous Approach (ICD-10-PCS; principal; 2018-09-17)
PROC: 047N3ZZ Dilation of Left Popliteal Artery, Percutaneous Approach (ICD-10-PCS; 2018-09-17)
PROC: 047U3ZZ Dilation of Left Peroneal Artery, Percutaneous Approach (ICD-10-PCS; 2018-09-17)
DX: E11.52 Type 2 diabetes mellitus with diabetic peripheral angiopathy with gangrene (principal); I96 Gangrene, not elsewhere classified; E11.621 Type 2 diabetes mellitus with foot ulcer; E78.5 Hyperlipidemia, unspecified; L03.032 Cellulitis of left toe; I10 Essential (primary) hypertension; L97.529 Non-pressure chronic ulcer of other part of left foot with unspecified severity; Z79.4 Long term (current) use of insulin; Z91.81 History of falling

== ENCOUNTER 2018-10-03 12:25 | Outpatient (CLI) | payer MEDICARE | END 2018-10-03 12:26 | disposition home or self-care (01) | LOC: C.MRIC 12:25 | DX: M86.9 Osteomyelitis, unspecified (principal) ==

== ENCOUNTER 2018-11-13 07:57 | Outpatient (CLI) | payer MEDICARE | END 2018-11-13 07:58 | disposition home or self-care (01) | LOC: C.PAT 07:57 | DX: I73.9 Peripheral vascular disease, unspecified (principal) ==

== ENCOUNTER 2018-11-18 09:01 | Day surgery (SDC) | payer MEDICARE ==
[2018-11-13 08:15] VITALS: BMI 23.6
[2018-11-18] MEDS ORDERED: Midazolam 2 MG/2 ML VIAL ONE (11:23)
[2018-11-18] MEDS ORDERED: Verapamil 2 ML ONE (13:04)
== END 2018-11-18 17:30 | disposition home or self-care (01) ==
LOC: C.CATHLAB 09:01
PROVIDERS: ATTEND Internal Medicine Interventional Cardiology
DX: E11.52 Type 2 diabetes mellitus with diabetic peripheral angiopathy with gangrene (principal); I70.269 Atherosclerosis of native arteries of extremities with gangrene, unspecified extremity; I10 Essential (primary) hypertension; E78.5 Hyperlipidemia, unspecified
CPT/HCPCS: 36247; 37224; 37229; 75625; 75716; 75774; 76937; C1725; C1760; C1766; C1769; C1887; C1893; J1644; J2250; J3010; Q9967

== ENCOUNTER 2019-01-08 10:00 | Outpatient (CLI) | payer MEDICARE | END 2019-01-08 10:01 | disposition home or self-care (01) | LOC: C.PAT 10:00 | DX: I73.9 Peripheral vascular disease, unspecified (principal) ==